=== PATIENT | female | born 1930 | race Caucasian/White ===

== ENCOUNTER 2019-09-14 15:35 | Inpatient (IN) | payer MEDICARE, BC ==
[~2019-09-14] VITALS: Ht 160 cm; Wt 62.1 kg
--- NOTE | 2019-09-14 16:02 | NUR ---
Admission Note with Justification for Admission to [facility] Patient admitted to [facility] for protective oversight for emergency stabilization of acute psychiatric crisis. Pt admitted from: [facility] Mode of arrival: Secure Transport Accompanied By: Secure Transport Precipitating behaviors that initiated intake and admission: Patient admitted from [facility] for reportedly being belligerent, verbally abusive, increased confusion, attempted to throw walker and fell and broke hip. Scratching and biting staff, threatening to kill herself while at rehab at [facility]. While at [facility] visual hallucinations, confusion and sleep disturbances. Description of failure of out patient attempts at stabilization in previous setting list behavior and medication trials: Patient has not responded to medication changes Behaviors and assessment findings upon admission: Patient was extremely drowsy, not responding to questions. Plan: Admit for protective oversight for adjustment and stabilization of medications, behaviors and mood. Intense treatment regimen including groups, medication adjustments, therapy, consistent regimen for ADL's, self care, and sleep hygiene. Daily monitoring by Inpatient staff, Psychiatry, and Medical Physician.
[2019-09-14] MEDS ORDERED: ACETAMINOPHEN 325 MG TABLET PO PRN ×2 (16:15→17:15)
[2019-09-14] MEDS ORDERED: MAGNESIUM HYDROXIDE 2,400 MG/30 ML ORAL.SUSP. PO PRN (16:15)
[2019-09-14] MEDS ORDERED: MAG HYDROX/AL HYDROX/SIMETH 30 ML ORAL.SUSP PO PRN (16:15)
[2019-09-14] MEDS ORDERED: METHYL SALICYLATE/MENTHOL TOPICAL OINTMENT 57GM TUBE. TP PRN (16:15)
[2019-09-14 16:44] VITALS: BP 118/44
[2019-09-14] MEDS ORDERED: ALEN35TA11 PO (16:45)
[2019-09-14] MEDS ORDERED: CALC-111 PO (16:45)
[2019-09-14] MEDS ORDERED: MIRT7.5T8 PO (16:45)
[2019-09-14] MEDS ORDERED: ROSU10TA26 PO (16:45)
[2019-09-14] MEDS ORDERED: OXYC15TA22 PO (16:45)
[2019-09-14] MEDS ORDERED: POLY15DR20 EACHEYE (16:45)
[2019-09-14] MEDS ORDERED: QUET25TA5 PO (16:45)
[2019-09-14] MEDS ORDERED: ISOS60TA2 PO (16:45)
[2019-09-14] MEDS ORDERED: FERR240T2 PO (16:45)
[2019-09-14] MEDS ORDERED: LENA5CAP PO (16:45)
[2019-09-14] MEDS ORDERED: INSU100I13 SQ (16:45)
[2019-09-14] MEDS ORDERED: METO50TA29 PO (16:45)
[2019-09-14] MEDS ORDERED: DOCU-109 PO (16:45)
[2019-09-14] MEDS ORDERED: ACET325T9 PO (16:45)
[2019-09-14] MEDS ORDERED: CHOL200027 PO (16:45)
[2019-09-14] MEDS ORDERED: INSU100C4 SQ (16:45)
[2019-09-14] MEDS ORDERED: ASPI325T8 PO (16:45)
[2019-09-14] MEDS ORDERED: LORA10TA55 PO (16:45)
--- NOTE | 2019-09-14 16:56 | NUR ---
Patient admitted from [facility] post-op day 3 Right hip ORIF. Patient's discharge instructions include; Change aquacell in 7 days to new aquacell and leave until 14 days post-op, Avalon out 14 days post-op and then place steri-strips. Leave incision open to air, keep clean and dry, ALEXANDER hose for a total of 2 weeks post-op, Aspirin 325mg BID for 6 weeks for DVT prophylaxis, formal therapy, Weight bearing as tolerated, Ambulate with walker. Therapy briefed on patient's situation prior to arrival, will inform them of full instructions when they do their assessment. Patient extremely drowsy and placed in wheelchair on admission for safety. Will continue to monitor and report to oncoming shift.
[2019-09-14] MEDS: CALCIUM CARB/VIT D3 500/200 TABLET PO SCH (17:00)
--- NOTE | 2019-09-14 17:14 | EKG ---
[address] [address] Test Date: 2019-09-14 Test Time: 18:06:21 Pat Name: NELDA PABON Department: Room: [address] [place] [address] Gender: F Industrial Engineering Director: EDMUNDO : 1930 Requested By: MOLINA SINGH Order Number: [id number] Reading MD: Measurements Intervals [place] Rate: 60 P: LA: QRS: 30 QRSD: 80 T: 51 QT: 430 QTc: 430 Interpretive Statements IRREGULAR RHYTHM, NO P-WAVE FOUND OTHERWISE NORMAL ECG RI6.02 No previous ECG available for comparison
[2019-09-14] MEDS ORDERED: POLYVINYL ALCOHOL 1.4% OPHTH SOLUTION 15ML BOTTLE. OU PRN (17:15)
[2019-09-14] MEDS ORDERED: DEXTROSE 50% 25 GM / 50ML DISP.SYRIN. IV PRN (17:45)
[2019-09-14] MEDS: DOCUSATE SODIUM 100 MG CAPSULE PO SCH ×2 (20:21→21:00)
[2019-09-14] MEDS: CHOLECALCIFEROL (VITAMIN D3) 1,000 UNIT TABLET PO SCH ×2 (20:21→21:00)
[2019-09-14] MEDS: FERROUS SULFATE 325 MG TABLET. PO SCH ×2 (20:21→21:00)
[2019-09-14] MEDS: ASPIRIN 325 MG TABLET PO SCH ×2 (20:21→21:00)
[2019-09-14] MEDS: MIRTAZAPINE 7.5 MG TABLET. PO SCH ×2 (20:21→21:00)
[2019-09-14] MEDS: ATORVASTATIN CALCIUM 20 MG TABLET PO SCH ×2 (20:22→21:00)
[2019-09-14] MEDS: QUEtiapine 25 MG TABLET. PO SCH ×2 (20:22→21:00)
[2019-09-14] MEDS ORDERED: INSULIN GLARGINE SYRINGE. SQ SCH (21:00)
[2019-09-15] MEDS: oxyCODONE IR 5 MG TABLET PO PRN ×3 (05:21→20:01)
[2019-09-15 05:51] VITALS: BP 146/70
[2019-09-15 07:16] LABS: BASO # 0.1 x10^3/uL (0.0-0.2); BASO % 2 % (0-3); EOS # 0.2 x10^3/uL (0.0-0.7); EOS % 7 % (0-3); HEMATOCRIT 24.6 % (36.0-47.0); HEMOGLOBIN 8.4 g/dL (12.0-15.5); LYMPH # 0.6 x10^3/uL (1.0-4.8); LYMPH % 28 % (24-48); MEAN CORPUSCULAR HEMOGLOBIN 34 pg (25-35); MEAN CORPUSCULAR HGB CONC 34 g/dL (31-37); MEAN CORPUSCULAR VOLUME 98 fL (79-100); MONO # 0.2 x10^3/uL (0.0-1.1); MONO % 10 % (0-9); NEUT # 1.2 x10^3uL (1.8-7.7); NEUT % 53 % (31-73); PLATELET COUNT 100 x10^3/uL (140-400); RED CELL DISTRIBUTION WIDTH 16.6 % (11.5-14.5); WHITE BLOOD COUNT 2.2 x10^3/uL (4.0-11.0)
[2019-09-15 07:25] LABS: ALBUMIN/GLOBULIN RATIO 0.6 (1.0-1.7); CALCIUM 7.9 mg/dL (8.5-10.1); CREATININE 1.3 mg/dL (0.6-1.0); GFR 38.8; MAGNESIUM 1.4 mg/dL (1.8-2.4); POTASSIUM 3.6 mmol/L (3.5-5.1); TOTAL BILIRUBIN 0.6 mg/dL (0.2-1.0); TOTAL PROTEIN 5.6 g/dL (6.4-8.2)
[2019-09-15] MEDS ORDERED: NON FORMULARY ITEM (Insulin Aspart (Novolog) 0 UNIT) SQ SCH (08:00)
[2019-09-15] MEDS: INSULIN LISPRO 300 UNITS/3 ML VIAL. SQ SCH ×3 (08:35→17:17)
[2019-09-15] MEDS: ASPIRIN 325 MG TABLET PO SCH ×2 (08:37→20:01)
[2019-09-15] MEDS: ISOSORBIDE MONONITRATE ER 30 MG TAB.ER.24H PO SCH (08:37)
[2019-09-15] MEDS: CALCIUM CARB/VIT D3 500/200 TABLET PO SCH ×2 (08:37→17:17)
[2019-09-15] MEDS: METOPROLOL SUCC 24HR ER 50 MG TAB.ER.24H. PO SCH (08:38)
[2019-09-15] MEDS: QUEtiapine 25 MG TABLET. PO SCH ×2 (08:38→20:00)
[2019-09-15] MEDS ORDERED: ALENDRONATE SODIUM 35 MG TABLET PO SCH (09:00)
[2019-09-15] MEDS ORDERED: CETIRIZINE HCL 10 MG TABLET PO PRN (09:00)
[2019-09-15 14:28] LABS: THYROID STIM HORMONE (TSH) 3.719 uIU/mL (0.358-3.740)
[2019-09-15] MEDS ORDERED: DEXTROSE 50% 25 GM / 50ML DISP.SYRIN. IV PRN (14:45)
[2019-09-15 15:54] VITALS: BP 109/64
--- NOTE | 2019-09-15 17:05 | NUR ---
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 REASON FOR ADMISSION IN PATIENT/FAMILY'S OWN WORDS: Family thinks this could be due to her procedure; her confusion has increased and she is aggressive which is not her nature. PATIENT/FAMILY EXPECTATIONS FOR ADMISSION: Medication and behavioral management. LIVING SITUATION: Patient lives with: Detention Other living arrangements: moved to the rehab department Contact Name: [facility] Contact Address: [address]; [place] [address] Contact Phone #: Contact Fax #: FAMILY RELATIONS: Marital Status: # of Marriages: 1 # of Children: 2 [facility] Family Support: Cooperative Involved in DC Planning Additional Comments r/t Family: Pt was for 49 years to her Lavell. In 2002, Lavell from a potential brain bleed; but unknown if that is the exact cause. Pt had 2 boys: Lavell and Jagjit. Pt does have a significant other that she's dated for the last couple years. SIGNIFICANT PSYCHIATRIC/MEDICAL HISTORY: Psychiatric/Treatment History: This is pt first psych stay on [facility] Pertinent Family History: No psych hx is noted. Mostly medical concerns of diabetes and heart trouble. HISTORICAL DATA: Childhood Environment: Stressful Childhood Environment Additional Comments: Pt is 1 of 11 children. Pt mother was mainly a single parent raising all 11 children; meanwhile, pt father worked for the railroad. He got hurt and lost both of his legs; later dying from infections. Pt sons report that pt does not talk about her childhood much as they grew up poor. Pt is the last living person in her family. 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 Past/Present Interests/Hobbies: Pt loves to dance. She is very social. Financial support/resources: Usp/Pension Social Security Monthly income: Person handling finances: Pt son, Lavell, is the financial DPOA Do you have a history of legal problems: N Cultural considerations: SOCIAL RELATIONSHIPS-CURRENT/PAST: Psychiatrist: PCP: Bruce Berry Counselor/Therapist: [facility]: Support Group: Behavioral Geneticist/Patent Lawyer: Other relationships: Oncologist -- Dr. Vieira STRENGTHS & WEAKNESSES: Patient's strengths: Good family support Approachable Other patient strengths: Patient's weaknesses: Impulsive Physically Aggressive Verbally Aggressive Other patient weaknesses: PRELIMINARY PLAN OF TREATMENT: Preliminary plan: Promote Coping Skill Medication Stabilization Dec. Outbursts Other preliminary treatment comments: DISCHARGE PLANNING: Discharge planning/disposition: Placement Needed Additional discharge needs identified: Pt sons are attempting to look at facilities in the [facility] area (closer to family). ADDITIONAL INFORMATION: Other Pertinent Data: SW completed pt PSA with pt sons, Lavell and Jagjit. Pt sons report that pt is not typically aggressive in nature and this has been a change for pt. SW questioned the diagnosis of a Mild Cognitive Impairment. Pt sons report that they believe pt has Dementia; however, it was hard to determine as pt is [place], has macular degeneration. Pt son reports that he has to repeat himself because she can't hear him. Pt son will plan to participate in tx team and mentioned that he brought in medications; however, the nurses told him to take them home. SW took the medications and will discuss this further with nursing as to why we cannot use them for pt while she is here. Pt son also mentioned that he has her RW in his car and can bring that up tomorrow if it is needed. SW will follow up with PT/OT to see if pt will need the walker.
[2019-09-15] MEDS: MAGNESIUM OXIDE 400 MG TABLET PO SCH ×2 (17:17→20:01)
--- NOTE | 2019-09-15 17:26 | NUR ---
Pt cooperative with all meds and assessments this shift. Pt generally pleasant, but does state she feels someone is after her at times. Pt ambulated in mendieta with PT. Medicated PRN for pain x1 in R hip/heel with adequate relief noted. Per MD, if blood glucose is >300, give 9 units of SSI this shift. Reassess tomorrow. Further adjustments to insulin may need to be made to maintain blood glucose in acceptable range. No BM noted this shift. No falls or injuries reported.
[2019-09-15] MEDS: ATORVASTATIN CALCIUM 20 MG TABLET PO SCH (20:00)
[2019-09-15] MEDS: MIRTAZAPINE 7.5 MG TABLET. PO SCH (20:01)
[2019-09-15] MEDS: FERROUS SULFATE 325 MG TABLET. PO SCH (20:01)
[2019-09-15] MEDS: CHOLECALCIFEROL (VITAMIN D3) 1,000 UNIT TABLET PO SCH (20:01)
[2019-09-15] MEDS: DOCUSATE SODIUM 100 MG CAPSULE PO SCH (20:02)
[2019-09-15] MEDS: INSULIN GLARGINE SYRINGE. SQ SCH (20:47)
[2019-09-15 21:06] LABS: THYROXINE 6.9 ug/dL (4.5-12.0)
--- NOTE | 2019-09-15 21:23 | NUR ---
Nursing note: Assumed care of pt in the day room. She was withdrawn but pleasant and compliant with meds and assessment. She is alert to self only. Pt pain 5/10, given prn Roxicodone as ordered. No behaviors
--- NOTE | 2019-09-15 22:43 | CONS ---
DATE OF CONSULTATION: 09/15/2019 REASON FOR CONSULTATION: Medical management. The patient is an 88-year-old female patient who was [facility] on account of increasing depression with suicidal ideation and thoughts with the plan, was thinking of giving herself. Dictation Ends Here JOSE YOUNG MD DR: KINSEY/austen JOB#: [id number] / [id number]
--- NOTE | 2019-09-15 23:51 | CONS ---
DATE OF CONSULTATION: 09/15/2019 REASON FOR CONSULTATION: Medical management. HISTORY OF PRESENT ILLNESS: The patient is an 88-year-old female patient, a resident at [facility], who was admitted to this unit on account of being belligerent, verbally abusive, increased confusion, attempted to throw walker and fell and broke her hip, scratching and biting staff, threatening to kill herself while at rehab at [facility]. While at [facility], she was noted to have visual hallucination, confusion, sleep disturbances, all this in a background of dementia with behavioral disturbances. The patient is very confused and really was not giving any useful information. PAST MEDICAL HISTORY: Significant for hypertension, coronary artery disease, hyperlipidemia, peripheral vascular disease, macular degeneration, chronic kidney disease. 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 She is legally blind. She has also pernicious anemia. She is hard of hearing and has bilateral hearing aids. PAST SURGICAL HISTORY: Significant for left hip fracture, status post open reduction and internal fixation. ALLERGIES: She is allergic to TYLOXAPOL AND AMBIEN. MEDICATIONS: She is currently on loratadine 10 mg once a day, Revlimid 5 mg every other day, ferrous gluconate 325 mg at bedtime, Crestor 10 mg at bedtime, isosorbide mononitrate 60 mg once a day, metoprolol succinate 50 mg daily. She is on aspirin 325 mg twice a day, oxycodone 5 mg every 4 hours, Tylenol 650 mg every 6 hours, mirtazapine 7.5 mg at bedtime. She is on Seroquel 12.5 mg twice a day and calcium carbonate with vitamin D one tablet twice a day, polyvinyl alcohol 1 drop to both eyes as needed, Colace 100 mg at bedtime. She is on NovoLog insulin 48 units subcutaneous 3 times a day with meals. She is on Lantus SoloSTAR 8 units at bedtime, cholecalciferol vitamin D 2000 international units once at bedtime. She is on alendronate 35 mg every 2 weeks. FAMILY HISTORY: Unobtainable. SOCIAL HISTORY: Also unobtainable. The patient is extremely confused. REVIEW OF SYSTEMS: Unobtainable. PHYSICAL EXAMINATION: GENERAL: When I examined her, she was pale, but no jaundice, cyanosis or thyromegaly. No jugular venous distention. No limb edema. VITAL SIGNS: Her heart rate was 65, blood pressure was 146/70, temperature was 98.1, respiratory rate was 18 and oxygen saturation was 95%. HEAD, EYES, EARS, NOSE AND THROAT: Showed normocephalic, atraumatic. NECK: Supple. HEART: Normal first and second heart sounds. No gallop, rub or murmur. CHEST: Clear to auscultation. No crepitation or rhonchi. ABDOMEN: Distended, soft, nontender. NEUROLOGIC: She is awake, alert, but very confused; however, all her cranial nerves are intact. EXTREMITIES: Moves upper extremities without difficulty. She has right hip fracture, status post open reduction and internal fixation. She also has right calcaneal fracture. She is currently in a walking boot. LABORATORY WORK: Showed serum sodium 139, potassium 3.6, chloride 106, bicarbonate 25, anion gap of 8, BUN 27, creatinine was 1.3 mg/dL, estimated GFR was 39 mL. Glucose was 235, calcium was 7.9, magnesium was 1.4. Total bilirubin, AST, ALT, alkaline phosphatase were normal. Total protein was 5.6, albumin was 2. The patient has pancytopenia. Her white cell count was only 2200, hemoglobin 8.4, hematocrit 24, MCV 98 and platelet count of 100,000 with normal manual differential. IMPRESSION: In summary, this is an 88-year-old female patient, was referred from [facility] on account of being belligerent, verbally abusive, increased confusion, attempted to throw walker and fell and broke her hip. She was scratching and biting staff, threatening to kill herself while at rehab at [facility]. While there, she also had visual hallucination, confusion and sleep disturbances, all this in a background of dementia with behavioral disturbances. Medically, she has pancytopenia due to myelodysplastic syndrome. She is known to have senile macular degeneration, chronic kidney disease, hyperlipidemia, coronary artery disease, hypertension, peripheral vascular disease, type 2 diabetes mellitus, poorly controlled. She is also hard of hearing and she is legally blind. She has also pernicious anemia. Her outstanding medical problem is that she has hypomagnesemia, for which was started on magnesium oxide 400 mg 2 times a day. We also adjusted her long-acting and short-acting insulin. Her blood sugar is definitely suboptimally controlled. We will follow all her labs and make any necessary adjustment. Thank you, Dr. Conklin, for allowing me to participate in the care of this patient. JOSE YOUNG MD DR: KINSEY/austen JOB#: [id number] / [id number]
--- NOTE | 2019-09-16 00:23 | PSYEV ---
DATE OF SERVICE: 09/14/2019 REASON FOR ADMISSION: This 88-year-old female was admitted from [facility] for reportedly being belligerent, verbally abusive, increased confusion and attempted to throw a walker and fell and broke her hip. The patient also was scratching and biting staff, threatening to kill herself while at the rehab. The patient is also experiencing visual hallucinations, confusion, and sleep disturbance. HISTORY OF PRESENT ILLNESS: The patient is unable to give much information. The patient has significant hearing loss. The patient is also very delusional. The patient was afraid that people are going to kill her. The patient also made statements that people are following her wherever she goes. The patient did not know that she was in the hospital. She was confused and disoriented to surroundings. The patient since being at the rehab facility, she become increasingly confused, severe agitation, paranoia, physically abusive towards staff. The patient has a diagnosis of severe dementia and she was hospitalized for right intertrochanteric fracture on 09/11/2019. The patient also had a hematoma of the head. The patient was originally seen at the ER on 09/10/2019 for the right hip fracture after falling. Apparently, she had a comminuted fracture of the right calcaneus. She was treated with CAM walker and discharged to custodial facility on 09/08/2019. She presented again to the ER with confusion and hallucinations. On 09/10/2019, she become combative with the staff. Apparently picked up a walker and then try to throw it at the staff. That is the time she fell and broke her right hip. X-ray was done. The patient had a displaced right intertrochanteric femur fracture, CT of the pelvis confirmed displacement. The patient has been complaining of severe right hip and groin pain. PAST MEDICAL HISTORY: Status post right hip fracture, pernicious anemia, history of cardiac catheterization, diabetic retinopathy, cataract removal, bone implants after ruptured 6th and 7th cervical disk, hypertension, dyslipidemia, chronic kidney disease, diabetes mellitus type 2, myelodysplastic syndrome, and osteoporosis. PAST PSYCHIATRIC HISTORY: The patient unable to give much information. Apparently, she has a history of depression. The patient apparently has been treated with mirtazapine and olanzapine recently. CURRENT MEDICATIONS: Include Lantus insulin 12 units at night subcutaneously, Humalog 0-9 units t.i.d. with meals. The patient is also on Revlimid 5 mg daily. The patient is also on Zyrtec 10 mg p.r.n. daily, Imdur 60 mg daily, metoprolol 50 mg daily, Fosamax 35 mg q. 2 weeks, Lipitor 40 mg at night, ferrous sulfate 325 mg at night, vitamin D 2000 units at night, Seroquel 12.5 mg b.i.d., mirtazapine 7.5 mg at night, aspirin 325 mg b.i.d., oxycodone 5 mg q. 4 hours p.r.n. The patient's lab reviewed. The patient's white cell count was 2.2, RBC 2.5, hemoglobin 8.4, platelet count 100. The patient's BUN was 27, creatinine 1.3, glucose fluctuated from 232-387. Fingerstick blood glucose level was 235, calcium 7.9, magnesium 1.4. PSYCHOSOCIAL HISTORY: The patient is unable to give much information at this time except stated she had a 4-year in college. 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 The patient denies of any history of smoking or alcohol use. The patient also lately having difficulty with sleep. The patient also constantly agitated, paranoid, fearful, also delusional that people are coming after her and also having visual hallucinations, increased confusion and sleep disturbances. The patient apparently was living on her own until recently and after the fall, she has been at the long-term. The patient is . 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 The patient apparently having multiple physical complaints. The patient was recently diagnosed with delirium and including most likely postop confusional state on top of the dementia. The patient has a DPOA. Apparently, her son is the DPOA. MENTAL STATUS EXAMINATION: The patient appeared to be of stated age, currently on wheelchair. The patient has marked psychomotor retardation, also blunting of affect. The patient is able to make eye contact. Apparently, she is legally blind. The patient also has significant hearing loss. The patient was indifferent to her surroundings. Her speech was monotone, decreased rate and rhythm, mostly monosyllabic. Her affect and mood showed she is currently withdrawn, delusional, fearful and she is afraid somebody is coming after her. The patient feels her life is in danger. The patient has recent history of visual hallucinations, but it is difficult to identify her symptoms because of the patient's inability to report her current symptoms. The patient appears depressed, slow mentation. She is disoriented to time, place and person. Her memory is not testable. The patient when asked about the current year, she stated 1930. Also, she stated today is the [employer]. The patient was able to smile at times. The patient did not show any major problems with thinking, except poverty of ideation. The patient was not able to hold any conversation. The patient denied of any suicidal thoughts. The patient does not recall most of the behaviors that has been reported. The patient's judgment is impaired. Insight limited. STRENGTH: Supportive family. WEAKNESSES: The patient has multiple physical complaints, recent fracture, right hip and also history of dementia. She is a high risk for falls. The patient also has abnormal lab values. DIAGNOSTIC IMPRESSION: AXIS I: 1. 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 2. Major depression, single episode. AXIS II: None. AXIS III: Coronary artery disease, peripheral vascular disease, chronic kidney disease, type 2 diabetes mellitus complicated with retinopathy, myelodysplastic syndrome, osteoporosis, hypertension. INITIAL TREATMENT PLAN: The patient will be under observation. The patient will be a fall risk precautions. The patient will continue on her current medications. The patient will be encouraged to attend some of the activities including individual therapy, group therapy, activity therapy. LENGTH OF STAY: 7-10 days. DISCHARGE CRITERIA: The patient is able to show improvement with regard to her inability to manage not falling and also less confused and less delusional prior to returning to the long-term. MOLINA SINGH MD DR: Tracy JOB#: [id number] / [id number]
[2019-09-16 01:07] LABS: HEMOGLOBIN A1C 7.6 % (4.8-5.6)
[2019-09-16 05:56] VITALS: BP 144/70
[2019-09-16] MEDS: ASPIRIN 325 MG TABLET PO SCH ×2 (08:20→19:52)
[2019-09-16] MEDS: MAGNESIUM OXIDE 400 MG TABLET PO SCH ×3 (08:20→19:53)
[2019-09-16] MEDS: CALCIUM CARB/VIT D3 500/200 TABLET PO SCH ×2 (08:20→18:04)
[2019-09-16] MEDS: QUEtiapine 25 MG TABLET. PO SCH ×2 (08:21→19:53)
[2019-09-16] MEDS: ISOSORBIDE MONONITRATE ER 30 MG TAB.ER.24H PO SCH (08:21)
[2019-09-16] MEDS: METOPROLOL SUCC 24HR ER 50 MG TAB.ER.24H. PO SCH (08:22)
[2019-09-16] MEDS: LENALIDOMIDE 5 MG PO SCH (08:23)
[2019-09-16] MEDS: INSULIN LISPRO 300 UNITS/3 ML VIAL. SQ SCH ×3 (08:23→17:00)
--- NOTE | 2019-09-16 14:42 | NUR ---
Activity Therapy Assessment Completed based on observation and notes as Pt. is unable to answer assessment questions at this time. Pt. uses a wheelchair to ambulate due to a recent hip surgery last month. Pt. is quiet, withdrawn, often sleeping, but generally calm and compliant with meds and cares. Pt. orientation seems limited to herself as she was observed responding to her name but had difficulty recognizing her sons when they came to visit. Pt. is polite in her interactions with staff and is hard of hearing. Pt. is from [facility] in [place], [place]. She is with two sons, Lavell and Jagjit, who are her DPOAs. 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 According to her sons, Pt. loves to dance and socialize with others. Pt. can be restless at times and attempt to stand out of her wheelchair but seems to respond well to repetition and gentle redirection. Pt. is often around group activities but tends to sleep through them. Pt. voice is soft and quiet but she seems to be able to speak in full sentences and responds to her environment. Initial goal aimed to increase socialization and engagement: Pt. will participate in three Activity Therapy groups or individual sessions per week.
[2019-09-16 15:27] VITALS: BP 119/67
--- NOTE | 2019-09-16 18:30 | NUR ---
Patient has been disorganized, calm, interactive, and pleasantly confused throughout this shift, occasionally wandering in the halls. She has been compliant with all medications. She was compliant and cooperative with PT and OT, she did have some complaints of pain after walking with PT. Will continue to monitor and report to oncoming shift.
[2019-09-16] MEDS: CHOLECALCIFEROL (VITAMIN D3) 1,000 UNIT TABLET PO SCH (19:52)
[2019-09-16] MEDS: DOCUSATE SODIUM 100 MG CAPSULE PO SCH (19:52)
[2019-09-16] MEDS: MIRTAZAPINE 7.5 MG TABLET. PO SCH (19:52)
[2019-09-16] MEDS: ATORVASTATIN CALCIUM 20 MG TABLET PO SCH (19:53)
[2019-09-16] MEDS: FERROUS SULFATE 325 MG TABLET. PO SCH (19:53)
[2019-09-16] MEDS: INSULIN GLARGINE SYRINGE. SQ SCH (21:02)
--- NOTE | 2019-09-16 22:07 | NUR ---
Nursing note: Assumed care of pt in the day room. She had just come from the shower and was pleasantly interactive. Pt is compliant with meds and assessment, no c/o pain at this time.
--- NOTE | 2019-09-17 00:29 | PN ---
DATE: 09/16/2019 SUBJECTIVE: The patient was seen today, met with the staff, chart reviewed. The patient is currently on wheelchair. The patient's behavior has improved. No falls. The patient is confused, withdrawn, constriction of affect. The patient is able to hold a conversation. The patient has also significant hearing loss. OBJECTIVE: VITAL SIGNS: Temperature 97.8, blood pressure 144/70, pulse 57, respiration 18, O2 sat 97%. GENERAL: Slept about 7 hours last night. The patient's appetite is fair. CURRENT MEDICATIONS: Include Seroquel 12.5 mg b.i.d., mirtazapine 7.5 mg at night and the patient is not having any side effects. LABORATORY DATA: The patient's lab reviewed. The patient's hemoglobin 8.4, decreased WBC and RBC count, also platelet count 100. The patient's hemoglobin A1c was 7.6, glucose level fluctuated. The patient's BUN was 23, creatinine 1.3. ASSESSMENT: 1. 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 2. Major depression, single episode. PLAN: Continue with the current treatment plan. LENGTH OF STAY: 7-10 days. MOLINA SINGH MD DR: PEDRO/austen JOB#: [id number] / [id number]
[2019-09-17 06:11] VITALS: BP 155/100
--- NOTE | 2019-09-17 07:41 | NUR ---
[facility] reports patient's [id number]. called, new orders received. Will provide medications and recheck FSBS at 10:00 per MD order. Addendum: 09/17/19 at 1200 by MANOJ CHAMPAGNE II, RN Patient's repeat FSBS was 309, made aware, new orders received and entered.
[2019-09-17] MEDS ORDERED: INSULIN LISPRO 300 UNITS/3 ML VIAL. SQ ONE ×2 (07:45→11:30)
[2019-09-17] MEDS: MAGNESIUM OXIDE 400 MG TABLET PO SCH ×3 (08:00→20:28)
[2019-09-17] MEDS: INSULIN LISPRO 300 UNITS/3 ML VIAL. SQ SCH ×3 (08:00→17:00)
[2019-09-17] MEDS: ASPIRIN 325 MG TABLET PO SCH ×2 (08:00→20:28)
[2019-09-17] MEDS: ISOSORBIDE MONONITRATE ER 30 MG TAB.ER.24H PO SCH (08:00)
[2019-09-17] MEDS: CALCIUM CARB/VIT D3 500/200 TABLET PO SCH ×2 (08:00→17:38)
[2019-09-17] MEDS: METOPROLOL SUCC 24HR ER 50 MG TAB.ER.24H. PO SCH (08:01)
[2019-09-17] MEDS: QUEtiapine 25 MG TABLET. PO SCH ×2 (08:02→20:29)
[2019-09-17] MEDS: LENALIDOMIDE 5 MG PO SCH ×2 (08:02→08:32)
[2019-09-17] MEDS: oxyCODONE IR 5 MG TABLET PO PRN (12:22)
[2019-09-17 15:36] VITALS: BP 128/64
--- NOTE | 2019-09-17 18:30 | NUR ---
Patient has been calm, compliant, and pleasantly confused during most of this shift. At about 15:30, she became agitated with another patient and was combative with aides when they attempted to redirect her. PAtient was removed from the other patient and placed at the table in the day room; she was very restless. Assisted patient up with a walker and walked with patient from the day room, down the east hallway, and then she sat down in front of the [facility] nurses' station. She was much less restless at this time and visited with her sons when they came at 16:00. She was calm and compliant through dinner, then was restless and trying to stand without assistance after she was done eating. Patient assisted to stand with walker and escorted to her room where she laid down. Will continue to monitor and report to oncoming staff.
[2019-09-17] MEDS: MIRTAZAPINE 7.5 MG TABLET. PO SCH (20:28)
[2019-09-17] MEDS: ATORVASTATIN CALCIUM 20 MG TABLET PO SCH (20:28)
[2019-09-17] MEDS: FERROUS SULFATE 325 MG TABLET. PO SCH (20:28)
[2019-09-17] MEDS: DOCUSATE SODIUM 100 MG CAPSULE PO SCH (20:28)
[2019-09-17] MEDS: CHOLECALCIFEROL (VITAMIN D3) 1,000 UNIT TABLET PO SCH (20:29)
[2019-09-17] MEDS: INSULIN GLARGINE SYRINGE. SQ SCH (20:31)
--- NOTE | 2019-09-17 23:51 | NUR ---
Pt has been in her bed all evening. Pt pleasant and interactive when approached. Compliant with whole medications. A/O to name, . Denies pain.
--- NOTE | 2019-09-18 00:54 | PN ---
DATE: 09/17/2019 SUBJECTIVE: The patient was seen today, met with the staff, chart reviewed. The patient's behavior remains the same. She is on wheelchair, withdrawn, decreased psychomotor activity, able to make eye contact. The patient is still confused and also significant hearing loss. OBSERVATION: VITAL SIGNS: Temperature 97.4, blood pressure 155/105, pulse 74, respirations 20, O2 sat 94%. Slept about 8 hours last night. The patient's appetite decreased. LABORATORY DATA: The patient's lab reviewed. MEDICATIONS: The patient's current medications include Seroquel 12.5 mg b.i.d., mirtazapine 7.5 mg at night. The patient is not having any side effects from medications. Staff reports that the patient is very confused and also she is not able to stay in bed at times. She is a fall risk. ASSESSMENT: 1. 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 2. Major depression, single episode. PLAN: To continue with the treatment. LENGTH OF STAY: 7-10 days. MOLINA SINGH MD DR: PEDRO/austen JOB#: [id number] / [id number]
--- NOTE | 2019-09-18 05:20 | NUR ---
Pt irritable and agitated this morning. Pt called staff names "mean bitch" and twisted GRANTS MANAGER's fingers.
[2019-09-18 05:49] VITALS: BP 152/60
[2019-09-18] MEDS: oxyCODONE IR 5 MG TABLET PO PRN (06:08)
[2019-09-18] MEDS: INSULIN LISPRO 300 UNITS/3 ML VIAL. SQ SCH ×3 (08:00→17:35)
[2019-09-18] MEDS: CALCIUM CARB/VIT D3 500/200 TABLET PO SCH ×2 (08:13→17:37)
[2019-09-18] MEDS: QUEtiapine 25 MG TABLET. PO SCH ×2 (08:13→20:34)
[2019-09-18] MEDS: MAGNESIUM OXIDE 400 MG TABLET PO SCH ×3 (08:13→20:33)
[2019-09-18] MEDS: ISOSORBIDE MONONITRATE ER 30 MG TAB.ER.24H PO SCH (08:14)
[2019-09-18] MEDS: METOPROLOL SUCC 24HR ER 50 MG TAB.ER.24H. PO SCH (08:14)
[2019-09-18] MEDS: ASPIRIN 325 MG TABLET PO SCH ×2 (08:15→20:33)
[2019-09-18 16:08] VITALS: BP 119/64
--- NOTE | 2019-09-18 16:19 | NUR ---
Compliant with medications. C/O pain in R hip and given PRN Roxicodone and analgesic balm for relief. Ambulated with walker one time down hallway with SBA, otherwise propelling self with w/c. Focused on family visiting to take her home, concerned about driving in the snow. Unable to redirect. No physical agitation today, but became upset when told she could not leave. Dressing changed to two bottom steri stripped areas, covered with foam aquacel. No drainage or redness.
[2019-09-18] MEDS: FERROUS SULFATE 325 MG TABLET. PO SCH (20:34)
[2019-09-18] MEDS: CHOLECALCIFEROL (VITAMIN D3) 1,000 UNIT TABLET PO SCH (20:34)
[2019-09-18] MEDS: MIRTAZAPINE 7.5 MG TABLET. PO SCH (20:34)
[2019-09-18] MEDS: DOCUSATE SODIUM 100 MG CAPSULE PO SCH (20:34)
[2019-09-18] MEDS: ATORVASTATIN CALCIUM 20 MG TABLET PO SCH (20:34)
[2019-09-18] MEDS: INSULIN GLARGINE SYRINGE. SQ SCH (20:37)
--- NOTE | 2019-09-18 22:47 | NUR ---
Pt has been calm and drowsy this evening. Compliant with whole medications and shower. A/Ox2. Denies pain. No agitation this evening.
[2019-09-19 05:28] VITALS: BP 154/69
[2019-09-19] MEDS: ASPIRIN 325 MG TABLET PO SCH ×2 (08:46→21:02)
[2019-09-19] MEDS: MAGNESIUM OXIDE 400 MG TABLET PO SCH ×3 (08:46→21:02)
[2019-09-19] MEDS: CALCIUM CARB/VIT D3 500/200 TABLET PO SCH ×2 (08:46→17:37)
[2019-09-19] MEDS: ISOSORBIDE MONONITRATE ER 30 MG TAB.ER.24H PO SCH (08:46)
[2019-09-19] MEDS: QUEtiapine 25 MG TABLET. PO SCH ×2 (08:46→21:02)
[2019-09-19] MEDS: LENALIDOMIDE 5 MG PO SCH (08:47)
[2019-09-19] MEDS: METOPROLOL SUCC 24HR ER 50 MG TAB.ER.24H. PO SCH (08:47)
[2019-09-19] MEDS: INSULIN LISPRO 300 UNITS/3 ML VIAL. SQ SCH ×3 (08:54→17:39)
--- NOTE | 2019-09-19 09:28 | NUR ---
Patient has been restless, sarcastic, and delusional this morning. She has had increased complaints of pain in right hip, prn medication provided per eMAR. Patient assisted to her room and into bed per her wishes. Will continue to monitor. Contacted patient's ortho group, left message with nurse requesting instructions r/t patient's needs for orthopedic interventions. Addendum: 09/19/19 at 0956 by MANOJ CHAMPAGNE II, RN TREE Hilton for Dr. Arroyo, ortho, called with instructions for CAM boot; patient is to wear the CAM boot except when she is in bed or showering until she is evaluated by orthopedics.
--- NOTE | 2019-09-19 10:00 | PN ---
DATE: 09/18/2019 SUBJECTIVE: The patient was seen today, met with the staff, chart reviewed. Staff reports the patient has been irritable, bernardo, gets agitated, also paranoid. The patient has difficulty following directions. The patient is withdrawn most of the time on wheelchair. The patient is also legally blind, but she is able to see few things around her, able to recognize people and also she knew that it was snowing outside. The patient is also confused, significant cognitive deficits, stated that she is waiting for plane to take her to [place]. The patient was upset because they are not letting her leave the building. The patient has also exit-seeking behaviors. OBSERVATION: VITAL SIGNS: Temperature 97.5, blood pressure 152/60, pulse 69, respirations 18, O2 sat 99%. Slept about 8 hours last night. LABORATORY DATA: The patient's lab reviewed. MEDICATIONS: The patient's current medications include Seroquel 12.5 mg b.i.d., mirtazapine 7.5 mg at night. The patient is not having any side effects to medications. The patient is still a fall risk. Staff reports sometimes she gets into an argument with the staff and tend to become combative and agitated easily. ASSESSMENT: 1. 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 2. Major depression, single episode. PLAN: To continue with the treatment. LENGTH OF STAY: 7-10 days. MOLINA SINGH MD DR: PEDRO/austen JOB#: [id number] / [id number]
[2019-09-19 15:29] VITALS: BP 105/58
[2019-09-19] MEDS: oxyCODONE IR 5 MG TABLET PO PRN (17:39)
--- NOTE | 2019-09-19 18:00 | NUR ---
Patient continues to c/o pain in right hip and left heel. Left heel is also swollen compared to this morning. MD contacted, new orders received, prn medication provided per eMAR.
--- NOTE | 2019-09-19 19:44 | RAD ---
Exam: Bilateral lower extremity venous duplex study INDICATION: Leg swelling TECHNIQUE: Using a combination of real-time ultrasound imaging and color-flow and pulse Doppler imaging techniques along with graded compression and augmentation, duplex evaluation of the deep venous systems of bilateral lower extremity was performed. Multiple images were obtained. Findings: There is no sonographic evidence for deep venous thrombosis involving the visualized deep venous structures of the bilateral lower extremity. IMPRESSION: No acute DVT in the bilateral lower extremities. Electronically signed by: Noemí Lagos MD (09/19/2019 7:42 PM) [facility]
[2019-09-19 20:27] LABS: BASO % 1 % (0-3); EOS # 0.2 x10^3/uL (0.0-0.7); EOS % 6 % (0-3); HEMATOCRIT 23.2 % (36.0-47.0); HEMOGLOBIN 7.9 g/dL (12.0-15.5); LYMPH # 0.8 x10^3/uL (1.0-4.8); LYMPH % 24 % (24-48); MEAN CORPUSCULAR HEMOGLOBIN 34 pg (25-35); MEAN CORPUSCULAR HGB CONC 34 g/dL (31-37); MEAN CORPUSCULAR VOLUME 100 fL (79-100); MONO # 0.3 x10^3/uL (0.0-1.1); MONO % 8 % (0-9); NEUT % 61 % (31-73); PLATELET COUNT 150 x10^3/uL (140-400); RED BLOOD COUNT 2.33 x10^6/uL (3.50-5.40); RED CELL DISTRIBUTION WIDTH 16.1 % (11.5-14.5); WHITE BLOOD COUNT 3.3 x10^3/uL (4.0-11.0)
[2019-09-19 20:39] LABS: ALBUMIN/GLOBULIN RATIO 0.6 (1.0-1.7); C REACTIVE PROTEIN 36.7 mg/L (0-3.3); CREATININE 1.5 mg/dL (0.6-1.0); GFR 32.9; POTASSIUM 4.5 mmol/L (3.5-5.1); TOTAL BILIRUBIN 0.5 mg/dL (0.2-1.0); TOTAL PROTEIN 5.4 g/dL (6.4-8.2)
[2019-09-19] MEDS: MIRTAZAPINE 7.5 MG TABLET. PO SCH (21:02)
[2019-09-19] MEDS: CHOLECALCIFEROL (VITAMIN D3) 1,000 UNIT TABLET PO SCH (21:02)
[2019-09-19] MEDS: DOCUSATE SODIUM 100 MG CAPSULE PO SCH (21:02)
[2019-09-19] MEDS: FERROUS SULFATE 325 MG TABLET. PO SCH (21:02)
[2019-09-19] MEDS: ATORVASTATIN CALCIUM 20 MG TABLET PO SCH (21:02)
[2019-09-19] MEDS: INSULIN GLARGINE SYRINGE. SQ SCH (21:12)
[2019-09-19 21:17] LABS: SEDIMENTATION RATE 45 (0-25)
--- NOTE | 2019-09-20 00:46 | PN ---
DATE: 09/19/2019 SUBJECTIVE: The patient was seen today, met with the staff, chart reviewed. The patient staying in bed, complaining of pain in both hips. Staff reports any major behavior problems, she did not have any falls except she is complaining of pain and getting narcotics as needed. The patient apparently had a fracture problems before she came in here. OBJECTIVE: VITAL SIGNS: Temperature 97.8, blood pressure 154/69, pulse 60, respirations 14, O2 sat 98%. Slept about 7 hours last night. LABORATORY DATA: The patient's lab reviewed, fluctuating blood sugar. The patient's hemoglobin A1c is 7.6. The patient's BUN 27, creatinine 1.3. MEDICATIONS: The patient's current medications include insulin including Lantus and Humalog. The patient is also on metoprolol. The patient's psych medications include Seroquel 12.5 mg b.i.d., mirtazapine 7.5 mg at night. The patient apparently is not having any side effects to the medications. The patient still hard of hearing. Also, poor vision. ASSESSMENT: 1. 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 2. Major depressive disorder, single episode. PLAN: To continue with the treatment. LENGTH OF STAY: 6-8 days. MOLINA SINGH MD DR: PEDRO/austen JOB#: [id number] / [id number]
--- NOTE | 2019-09-20 01:58 | RAD ---
HIP RIGHT 2 VIEW DATE: 09/19/2019 5:07 PM INDICATION: Hip pain. Recent right hip surgery. COMPARISON: None. FINDINGS/ IMPRESSION: Right hip fracture status post ORIF. Surgical hardware is intact. Hip joint is congruent. Electronically signed by: Nick Maria MD (09/20/2019 1:55 AM) [facility]
--- NOTE | 2019-09-20 02:02 | RAD ---
ANKLE BILAT 2V DATE: 09/19/2019 5:07 PM INDICATION: Pain. Right calcaneus fracture. COMPARISON: None. FINDINGS/ IMPRESSION: Right: Ankle joint is congruent. Degenerative changes of the talocalcaneal joint. Plantar calcaneal enthesophyte. Discrete calcaneus fracture line not well visualized, correlate with outside imaging. Left: No acute fracture. Ankle joint is congruent. Atherosclerotic vascular calcifications. Electronically signed by: Nick Maria MD (09/20/2019 1:59 AM) [facility]
--- NOTE | 2019-09-20 03:58 | NUR ---
Nsg Note: Patient in room at time of medication administration and assessments. Patient was asking about status of labs, "Did we find out if I have Leukemia?" Unaware of what patient was referring too, went to check labs. Labs came in late and were all completely out of whack (ESR, DDIMER, BUN, CR, CRP, etc.,) Patient had hip surgery a couple weeks ago and does have a blood disorder, however, unaware of why these labs were warranted to begin with and some of the labs out of whack, do not have direct correlation to disorder (to RNs knowledge). Unsure of what has or has not been communicated on patient prior to all of this. Patient assessed full head to toe when labs reviewed. Patient denying any chest pain, difficulty breathing, cough etc., Labs printed out and reviewed by both RNs on staff. Will pass on to day shift as STAT to review with MD (MD put lab orders in and doppler, etc.,) Chest x-ray was also ordered for the AM to check for possible PEs as it had not been ordered prior. Will continue to monitor patient closely on shift. Patient calm, compliant and cooperative. No notable behaviors at this time.
[2019-09-20 05:16] VITALS: BP 125/65
[2019-09-20] MEDS: oxyCODONE IR 5 MG TABLET PO PRN ×2 (05:28→20:41)
[2019-09-20] MEDS: MAGNESIUM OXIDE 400 MG TABLET PO SCH ×3 (09:25→20:40)
[2019-09-20] MEDS: QUEtiapine 25 MG TABLET. PO SCH ×2 (09:26→20:40)
[2019-09-20] MEDS: ASPIRIN 325 MG TABLET PO SCH ×2 (09:26→20:40)
[2019-09-20] MEDS: CALCIUM CARB/VIT D3 500/200 TABLET PO SCH ×2 (09:26→17:28)
--- NOTE | 2019-09-20 09:26 | RAD ---
EXAM: Chest, single view. HISTORY: Elevated d-dimer. COMPARISON: None. FINDINGS: Frontal views of the chest are obtained. There is no infiltrate, pleural effusion or pneumothorax. The heart is normal in size. There is faint increased opacity overlying the right upper lobe due to overlying osseous and soft tissue shadows. IMPRESSION: No acute pulmonary finding. Electronically signed by: Cindy Her MD (09/20/2019 9:23 AM) [place] [id number]
[2019-09-20] MEDS: ISOSORBIDE MONONITRATE ER 30 MG TAB.ER.24H PO SCH (09:27)
[2019-09-20] MEDS: METOPROLOL SUCC 24HR ER 50 MG TAB.ER.24H. PO SCH (09:27)
[2019-09-20] MEDS: INSULIN LISPRO 300 UNITS/3 ML VIAL. SQ SCH ×3 (09:29→17:33)
--- NOTE | 2019-09-20 13:22 | TX PLAN ---
Interdisciplinary Tx Plan Admission Information Sep 14, 2019 at 15:35 Legal Status (on Admission): Voluntary DPOA/Guardian Name: Jagjit Douglas Contact Other Contact Name: iMguelina Kaufman Other Contact Verified Code Status: DNR Allergies: Coded Allergies: tyloxapol (Verified Allergy, Unknown, 09/14/19) zolpidem (Verified Allergy, Unknown, 09/14/19) Diagnoses Primary Diagnosis: Dementia with BD Reasons for Admission: Aggressive, Combative, Confusion/Disoriented Problem in Patient's Words: Family thinks this could be due to her procedure; her confusion has increased and she is aggressive which is not her nature. Additional Admission Comments: According to the intake, pt is beligerent, verbally aggressive, increased confusion, fell trying to seed cone picker a walker to throw at staff, agitated, hit and bit scratched,threatening to kill self. Problems Active Problems: verbal aggression physical aggression SI threats Hallucinations Pt Strengths/Limitations Ability for [place]: Poor Cognitive Functioning/Ability: Poor Communication Skills/Ability: Poor Financial Resources: Fair Insight/Judgement: Poor Intellectual Ability: Fair Physical Health: Poor Social Skills: Fair Stability in Family: Good Stability in School/Work: Poor Verbal Skills: Fair Discharge Criteria Discharge Criteria: Able meet basic life need, Adequate arrangements @DC, Imp roved behavior, Improved mood/thought Preliminary Discharge Plan Preliminary DC Plan: Placement Needed Special Precautions Fall Risk: Low Initial D/C Plan Pt sons are currently looking for placement. Identified Discharge Needs: Placement options for AL or Memory Care Currently Utilized Resources Currently Utilized Resources/P: Does have outpt providers (PCP and Psychiatrist) Referrals Community Resources: May need to change providers closer to . Identified Problems/Hx/Goals Objectives/Short-Term Goals Short Term Goals: Dec. Outbursts, Medication Stabilization, Promote Coping Skill Short Term Goals in Patient's: I'm ready to get out of here. I've been here too long. Interventions/Frequency Staff Interventions/Frequency&: Psychiatrist to see pt at least 3x per week. Social work to see pt at least 2x per week. Nursing to complete 15 minute checks daily Encourage to participate in group activities. 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 Community Follow-up Will depend on placement Community Provider/Family Inpu: Between her medical complications, her hearing and the dementia....she is complicated. Treatment Plan Explained Patient/Sole Stainer had this treatment plan explained to him/her as indicated by the signature below and has been given the opportunity to ask questions and make suggestions: Date: Patient/Sole Stainer Signature: Patient/Sole Stainer Decline: LAILA Sylvester Sep 20, 2019 13:22
--- NOTE | 2019-09-20 15:03 | NUR ---
pt attempted tp transfer self to bed and slipped and hit right hip while sliding to the floor. Vitals obtained, pain denies discomfort at this time, Dr. Burton notified and orders for xray received. Message left for patient dpoa to return call to unit regarding patient update.
--- NOTE | 2019-09-20 15:42 | NUR ---
Patient son,Jagjit returned call, informed of patient fall. No questions or concerns voiced per patient family, pt denies discomfort. Pt son states they will visit patient at 1600 visiting time, Xray on unit for xray ordered.
[2019-09-20 15:51] VITALS: BP 112/61
--- NOTE | 2019-09-20 16:01 | RAD ---
2 views right hip 09/20/2019 INDICATION: Fall. Status post ORIF right hip. COMPARISON STUDY: Right hip radiograph June 20, 2019 Discussion: Stable postsurgical changes following ORIF of the right hip. Hardware appears intact. No new fracture or dislocation is identified. Lucency involving the femoral neck consistent with fracture is similar. No acute soft tissue changes noted in the interim. Dense SFA calcification noted. Impression: Grossly stable appearance of postsurgical changes following ORIF of the right hip Electronically signed by: Franko Ramirez MD (09/20/2019 3:58 PM) [facility]
--- NOTE | 2019-09-20 16:08 | NUR ---
Nursing note: Pt was in her room this morning for her meds and assessment. She was compliant with taking her meds whole and was cooperative with her assessment. She had no complaints at the time of her assessment. Pt continues to deny pain at this time. Pt has been withdrawn to her room for most of the day. Will continue to monitor.
[2019-09-20] MEDS: MIRTAZAPINE 7.5 MG TABLET. PO SCH (20:40)
[2019-09-20] MEDS: DOCUSATE SODIUM 100 MG CAPSULE PO SCH (20:40)
[2019-09-20] MEDS: CHOLECALCIFEROL (VITAMIN D3) 1,000 UNIT TABLET PO SCH (20:40)
[2019-09-20] MEDS: ATORVASTATIN CALCIUM 20 MG TABLET PO SCH (20:40)
[2019-09-20] MEDS: FERROUS SULFATE 325 MG TABLET. PO SCH (20:41)
[2019-09-20] MEDS: INSULIN GLARGINE SYRINGE. SQ SCH (20:44)
--- NOTE | 2019-09-20 21:49 | PDOC ---
Exam Note: Donta Note: Please also refer to the separate dictated note~for this date of service dictated separately.~Patient seen individually. Discussed the patient with Nursing staff reviewed the chart.~Reviewed interim history and current functioning. Reviewed vital signs,~Labs/ Radiology~and current medications noted below. Continue current treatment with the changes noted in the dictated addendum note Assessment: Vital Signs/I&O: Vital Signs Date Time Temp Pulse Resp B/P (MAP) Pulse Ox O2 Delivery O2 Flow Rate FiO2 09/20/19 20:41 16 97 Room Air 09/20/19 15:51 98.0 58 112/61 (78) I & O 09/19/19 09/19/19 09/20/19 14:59 22:59 06:59 Intake Total 720 ml 360 ml Balance 720 ml 360 ml Labs: Laboratory Tests Test 09/20/19 07:59 09/20/19 12:08 09/20/19 16:49 09/20/19 19:02 Glucose (Fingerstick) 215 mg/dL (70-99) H 302 mg/dL (70-99) H 200 mg/dL (70-99) H 207 mg/dL (70-99) H Current Medications: I have reviewed the current psychotropics carefully including drug interactions. Risk benefit ratio favors no change other than as noted in my dictated progress note. Diagnosis: Problems: (1) Major neurocognitive disorder, due to vascular disease, with behavioral disturbance, mild (2) Dementia in Alzheimer's disease with delusions (3) Dementia in Alzheimer's disease with depression (4) Dementia, vascular, with delusions (5) Dementia, vascular, with depression (6) Major depression RHIANNA BREAUX MD Sep 20, 2019 21:49
--- NOTE | 2019-09-20 23:08 | NUR ---
Nsg Note: Patient in day room at time of medication administration and assessments. Patient was not in a good mood. Patient kept door checking and wanting to get out of the day room and not letting anyone in or out. Spoke to patient and discussed if she took her medications and cooperated, she could go to bed right after. Patient was in pain. PRN Roxicodone given with HS medications. Patient went to sleep shortly after. No other notable behaviors at this time.
[2019-09-21 05:16] VITALS: BP 128/67
[2019-09-21] MEDS: oxyCODONE IR 5 MG TABLET PO PRN ×2 (06:00→21:17)
[2019-09-21 07:44] LABS: CALCIUM 8.2 mg/dL (8.5-10.1); CREATININE 1.4 mg/dL (0.6-1.0); GFR 35.6; POTASSIUM 4.3 mmol/L (3.5-5.1)
[2019-09-21] MEDS: LENALIDOMIDE 5 MG PO SCH (09:00)
[2019-09-21] MEDS: METOPROLOL SUCC 24HR ER 50 MG TAB.ER.24H. PO SCH (09:04)
[2019-09-21] MEDS: ASPIRIN 325 MG TABLET PO SCH ×2 (09:04→21:17)
[2019-09-21] MEDS: MAGNESIUM OXIDE 400 MG TABLET PO SCH ×3 (09:04→21:17)
[2019-09-21] MEDS: ISOSORBIDE MONONITRATE ER 30 MG TAB.ER.24H PO SCH (09:04)
[2019-09-21] MEDS: QUEtiapine 25 MG TABLET. PO SCH ×2 (09:04→21:17)
[2019-09-21] MEDS: CALCIUM CARB/VIT D3 500/200 TABLET PO SCH ×2 (09:04→17:46)
[2019-09-21] MEDS: INSULIN LISPRO 300 UNITS/3 ML VIAL. SQ SCH ×3 (09:09→17:56)
--- NOTE | 2019-09-21 15:58 | NUR ---
Nursing note: Pt in dining room at time of morning meds and assessment. Pt was compliant with taking her meds whole and was cooperative with her assessment. Pt was pleasant at time of assessment and denied having any pain. Pt later became irritable and began door checking, talking back to staff, and attempted to hit staff. She was unable to be redirected at the time so she was moved to the secure hallway where she laid on the mattress in the quiet room and fell asleep. Will continue to monitor.
[2019-09-21 16:23] VITALS: BP 132/58
--- NOTE | 2019-09-21 17:00 | NUR ---
SW met with Jagjit who wanted to follow up as he was told that pt was having a bad day. SW went over her attempts to hit and scratch as staff; the precipitating event potentially could have been her separation from a male peer who she attempted to hold hands with. For the last couple days, pt has been asking about her significant other. Pt son reports that he does not think that the significant other is able to visit and hopes that she can continue to calm down in order to get her moved to [facility]. Pt son has also put a picture on pt windowsill in hopes that it helps her feel less agitated and more redirectable. Pt son will plan to participate in tx team via phone.
[2019-09-21] MEDS: ATORVASTATIN CALCIUM 20 MG TABLET PO SCH (21:17)
[2019-09-21] MEDS: CHOLECALCIFEROL (VITAMIN D3) 1,000 UNIT TABLET PO SCH (21:17)
[2019-09-21] MEDS: MIRTAZAPINE 7.5 MG TABLET. PO SCH (21:17)
[2019-09-21] MEDS: DOCUSATE SODIUM 100 MG CAPSULE PO SCH (21:17)
[2019-09-21] MEDS: FERROUS SULFATE 325 MG TABLET. PO SCH (21:18)
[2019-09-21] MEDS: INSULIN GLARGINE SYRINGE. SQ SCH (21:19)
--- NOTE | 2019-09-21 22:20 | PN ---
DATE: 09/20/2019 PSYCHIATRIC PROGRESS NOTE This late entry 09/20/2019 covers elements not covered in my initial note. SUBJECTIVE: I met with the patient in the evening. Per TREE Ricardo, the patient slept 8-3/4 hours previous night. The patient remains confused, compliant with medications. She fell in the evening while transferring from her bed to wheelchair, oriented x 1. REVIEW OF SYSTEMS: Impaired ambulation. No CV, , pulmonary, eye, ENT system symptoms on review. Reliability poor. MENTAL STATUS EXAM: Oriented to herself. Insight, judgment, recent and remote memory, attention, concentration, fund of knowledge poor, consistent with her diagnoses. IMPRESSION: Major neurocognitive disorder, Alzheimer, vascular with delusion, depression, behavioral disturbance; anxiety disorder, unspecified; impulse control disorder, unspecified. PLAN: Continue Seroquel 12.5 mg b.i.d., Remeron 7.5 mg at bedtime, assess baseline, then make further adjustments as clinically indicated. MAN Geeta BREAUX MD DR: DARRELL/austen JOB#: [id number] / [id number]
--- NOTE | 2019-09-21 23:25 | PDOC ---
Exam Note: Donta Note: Please also refer to the separate dictated note~for this date of service dictated separately.~Patient seen individually. Discussed the patient with Nursing staff reviewed the chart.~Reviewed interim history and current functioning. Reviewed vital signs,~Labs/ Radiology~and current medications noted below. Continue current treatment with the changes noted in the dictated addendum note Assessment: Vital Signs/I&O: Vital Signs Date Time Temp Pulse Resp B/P (MAP) Pulse Ox O2 Delivery O2 Flow Rate FiO2 09/21/19 21:17 16 96 Room Air 09/21/19 16:23 97.4 61 132/58 (82) I & O 09/20/19 09/20/19 09/21/19 14:59 22:59 06:59 Intake Total 840 ml 300 ml Balance 840 ml 300 ml Labs: Laboratory Tests Test 09/21/19 07:00 09/21/19 07:23 09/21/19 12:11 09/21/19 16:56 Sodium Level 136 mmol/L (136-145) Potassium Level 4.3 mmol/L (3.5-5.1) Chloride Level 102 mmol/L (98-107) Carbon Dioxide Level 30 mmol/L (21-32) Anion Gap 4 (6-14) L Blood Urea Nitrogen 35 mg/dL (7-20) H Creatinine 1.4 mg/dL (0.6-1.0) H Estimated GFR (Cockcroft-Gault) 35.6 Glucose Level 228 mg/dL (70-99) H Calcium Level 8.2 mg/dL (8.5-10.1) L Magnesium Level 1.9 mg/dL (1.8-2.4) Glucose (Fingerstick) 239 mg/dL (70-99) H 181 mg/dL (70-99) H 160 mg/dL (70-99) H Test 09/21/19 19:30 Glucose (Fingerstick) 152 mg/dL (70-99) H Current Medications: I have reviewed the current psychotropics carefully including drug interactions. Risk benefit ratio favors no change other than as noted in my dictated progress note. Diagnosis: Problems: (1) Major depression (2) Dementia, vascular, with depression (3) Dementia, vascular, with delusions (4) Dementia in Alzheimer's disease with depression (5) Dementia in Alzheimer's disease with delusions (6) Major neurocognitive disorder, due to vascular disease, with behavioral disturbance, mild RHIANNA BREAUX MD Sep 21, 2019 23:25
--- NOTE | 2019-09-22 05:57 | NUR ---
NSg Note: Patient calm, compliant, cooperative in day room at time of medication admnistration. Patient had some pain, PRN Roxicodone given with HS medications. Patient was interacting with other patients. No other notable behaviors at this time.
[2019-09-22 06:11] VITALS: BP 127/65
[2019-09-22] MEDS: INSULIN LISPRO 300 UNITS/3 ML VIAL. SQ SCH ×3 (08:00→17:37)
[2019-09-22] MEDS: CALCIUM CARB/VIT D3 500/200 TABLET PO SCH ×2 (08:33→17:35)
[2019-09-22] MEDS: MAGNESIUM OXIDE 400 MG TABLET PO SCH ×3 (08:33→20:13)
[2019-09-22] MEDS: ISOSORBIDE MONONITRATE ER 30 MG TAB.ER.24H PO SCH (08:34)
[2019-09-22] MEDS: QUEtiapine 25 MG TABLET. PO SCH ×2 (08:34→20:13)
[2019-09-22] MEDS: METOPROLOL SUCC 24HR ER 50 MG TAB.ER.24H. PO SCH (08:34)
[2019-09-22] MEDS: ASPIRIN 325 MG TABLET PO SCH ×2 (08:35→20:12)
[2019-09-22] MEDS: SERTRALINE 25 MG TABLET. PO SCH (08:35)
[2019-09-22] MEDS: oxyCODONE IR 5 MG TABLET PO PRN (14:03)
--- NOTE | 2019-09-22 15:28 | TX PLAN ---
Interdisciplinary Tx Plan Admission Information Sep 14, 2019 at 15:35 Legal Status (on Admission): Voluntary DPOA/Guardian Name: Jagjit Douglas Contact Other Contact Name: Miguelina Kaufman Other Contact Verified Code Status: DNR Allergies: Coded Allergies: tyloxapol (Verified Allergy, Unknown, 09/14/19) zolpidem (Verified Allergy, Unknown, 09/14/19) Diagnoses Primary Diagnosis: Dementia with BD Reasons for Admission: Aggressive, Combative, Confusion/Disoriented Problem in Patient's Words: Family thinks this could be due to her procedure; her confusion has increased and she is aggressive which is not her nature. Additional Admission Comments: According to the intake, pt is beligerent, verbally aggressive, increased confusion, fell trying to pickle sorter a walker to throw at staff, agitated, hit and bit scratched,threatening to kill self. Problems Active Problems: verbal aggression physical aggression SI threats Hallucinations Pt Strengths/Limitations Ability for Terry: Poor Cognitive Functioning/Ability: Poor Communication Skills/Ability: Poor Financial Resources: Fair Insight/Judgement: Poor Intellectual Ability: Fair Physical Health: Poor Social Skills: Fair Stability in Family: Good Stability in School/Work: Poor Verbal Skills: Fair Discharge Criteria Discharge Criteria: Able meet basic life need, Adequate arrangements @DC, Imp roved behavior, Improved mood/thought Preliminary Discharge Plan Preliminary DC Plan: Placement Needed Special Precautions Fall Risk: Low Initial D/C Plan Pt sons are currently looking for placement. Identified Discharge Needs: Placement options for AL or Memory Care Currently Utilized Resources Currently Utilized Resources/P: Does have outpt providers (PCP and Psychiatrist) Referrals Community Resources: May need to change providers closer to . Identified Problems/Hx/Goals Objectives/Short-Term Goals Short Term Goals: Dec. Outbursts, Medication Stabilization, Promote Coping Skill Short Term Goals in Patient's: I'm ready to get out of here. I've been here too long. Interventions/Frequency Staff Interventions/Frequency&: Psychiatrist to see pt at least 3x per week. Social work to see pt at least 2x per week. Nursing to complete 15 minute checks daily Encourage to participate in group activities. 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 Community Follow-up Will depend on placement Community Provider/Family Inpu: Between her medical complications, her hearing and the dementia....she is complicated. Treatment Plan Explained Patient/Broadcast Producer had this treatment plan explained to him/her as indicated by the signature below and has been given the opportunity to ask questions and make suggestions: Date: Patient/Broadcast Producer Signature: Status Update Update Pt is eating 75% of meals and sleeping 8 hours a night. Pt has episodes of irritability, and attempts to be combative and verbally aggressive; which has .. Pt is compliant with medications and cares. At this time, pt sons have found placement at the [facility]. Pt could potentially look at discharging the latter part of next week. LAILA MUHAMMAD Sep 22, 2019 15:28
[2019-09-22 16:14] VITALS: BP 127/54
--- NOTE | 2019-09-22 18:00 | NUR ---
patient has been calm, compliant, pleasantly confused, and delusional throughout this shift. She believes she is at work. She has complained of mild LBP, but denies any interventions except a heating pad which we are unable to provide. Will continue to monitor and report to oncoming shift.
[2019-09-22] MEDS: DOCUSATE SODIUM 100 MG CAPSULE PO SCH (20:12)
[2019-09-22] MEDS: FERROUS SULFATE 325 MG TABLET. PO SCH (20:13)
[2019-09-22] MEDS: MIRTAZAPINE 7.5 MG TABLET. PO SCH (20:13)
[2019-09-22] MEDS: ATORVASTATIN CALCIUM 20 MG TABLET PO SCH (20:13)
[2019-09-22] MEDS: CHOLECALCIFEROL (VITAMIN D3) 1,000 UNIT TABLET PO SCH (20:14)
--- NOTE | 2019-09-22 20:42 | PDOC ---
Exam Note: Donta Note: Please also refer to the separate dictated note~for this date of service dictated separately.~Patient seen individually. Discussed the patient with Nursing staff reviewed the chart.~Reviewed interim history and current functioning. Reviewed vital signs,~Labs/ Radiology~and current medications noted below. Continue current treatment with the changes noted in the dictated addendum note Assessment: Vital Signs/I&O: Vital Signs Date Time Temp Pulse Resp B/P (MAP) Pulse Ox O2 Delivery O2 Flow Rate FiO2 09/22/19 20:16 94 Room Air 09/22/19 16:14 98.1 61 16 127/54 (78) I & O 09/21/19 09/21/19 09/22/19 15:00 23:00 07:00 Intake Total 560 ml 240 ml Balance 560 ml 240 ml Labs: Laboratory Tests Test 09/22/19 07:33 09/22/19 11:46 09/22/19 17:26 09/22/19 18:57 Glucose (Fingerstick) 99 mg/dL (70-99) 360 mg/dL (70-99) H 271 mg/dL (70-99) H 314 mg/dL (70-99) H Current Medications: Meds: Current Medications Medications (Trade) Dose Ordered Sig/Celia Route PRN Reason Start Time Stop Time Status Last Admin Dose Admin Sertraline HCl (Zoloft) 25 mg DAILY PO 09/22/19 09:00 09/24/19 23:50 09/22/19 08:35 I have reviewed the current psychotropics carefully including drug interactions. Risk benefit ratio favors no change other than as noted in my dictated progress note. 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
[2019-09-22] MEDS: INSULIN GLARGINE SYRINGE. SQ SCH (21:44)
--- NOTE | 2019-09-22 23:10 | NUR ---
Nursing note: Assumed care of pt in the day room. She was calm and compliant with meds and assessment. Pt is pleasantly confused. She was ready for bed. No c/o pain at this time. No delusions or hallucinations, no behaviors.
[2019-09-23 04:57] VITALS: BP 114/55
[2019-09-23] MEDS: ISOSORBIDE MONONITRATE ER 30 MG TAB.ER.24H PO SCH (08:00)
[2019-09-23] MEDS: MAGNESIUM OXIDE 400 MG TABLET PO SCH ×3 (08:01→20:07)
[2019-09-23] MEDS: CALCIUM CARB/VIT D3 500/200 TABLET PO SCH ×2 (08:01→17:26)
[2019-09-23] MEDS: METOPROLOL SUCC 24HR ER 50 MG TAB.ER.24H. PO SCH (08:01)
[2019-09-23] MEDS: ASPIRIN 325 MG TABLET PO SCH ×2 (08:01→20:06)
[2019-09-23] MEDS: QUEtiapine 25 MG TABLET. PO SCH ×2 (08:02→20:07)
[2019-09-23] MEDS: SERTRALINE 25 MG TABLET. PO SCH (08:02)
[2019-09-23] MEDS: LENALIDOMIDE 5 MG PO SCH (08:06)
[2019-09-23] MEDS: oxyCODONE IR 5 MG TABLET PO PRN ×2 (08:06→15:47)
[2019-09-23] MEDS: INSULIN LISPRO 300 UNITS/3 ML VIAL. SQ SCH ×3 (08:09→17:27)
--- NOTE | 2019-09-23 09:00 | NUR ---
Patient was delusional, mildly angry, and compliant with medications this morning. PRN medications provided for hip pain per eMAR. Patient was complaining that she had done six plug-ins and had only been paid for one, stated she was upset about that. Patient did not eat at breakfast, stated she couldn't afford it, did not change her mind when staff informed her that it was already paid for. Will continue to monitor
--- NOTE | 2019-09-23 12:13 | NUR ---
WEEKLY ACTIVITY THERAPY NOTE Date of Admission: 09/14/2019 Date of AT Assessment: 09/16/2019 Goal aimed: to increase socialization and engagement Initial Goal: Pt. will participate in three Activity Therapy groups or individual sessions per week. Weekly progress towards goal: 2 as of Thursday Group participation level: moderate and full in the two groups Weekly highlights: socializing with staff on Thursday afternoon, enjoyed brownies last Behaviors observed: sleeping often, generally disinterested in groups, quiet, calm Plan: no change to goal Beneficial adaptations:
[2019-09-23 16:08] VITALS: BP 147/64
[2019-09-23] MEDS: FERROUS SULFATE 325 MG TABLET. PO SCH (20:06)
[2019-09-23] MEDS: DOCUSATE SODIUM 100 MG CAPSULE PO SCH (20:06)
[2019-09-23] MEDS: CHOLECALCIFEROL (VITAMIN D3) 1,000 UNIT TABLET PO SCH (20:07)
[2019-09-23] MEDS: ATORVASTATIN CALCIUM 20 MG TABLET PO SCH (20:07)
[2019-09-23] MEDS: MIRTAZAPINE 7.5 MG TABLET. PO SCH (20:07)
[2019-09-23] MEDS: INSULIN GLARGINE SYRINGE. SQ SCH (20:11)
--- NOTE | 2019-09-23 21:33 | PDOC ---
Exam Note: Donta Note: Please also refer to the separate dictated note~for this date of service dictated separately.~Patient seen individually. Discussed the patient with Nursing staff reviewed the chart.~Reviewed interim history and current functioning. Reviewed vital signs,~Labs/ Radiology~and current medications noted below. Continue current treatment with the changes noted in the dictated addendum note Assessment: Vital Signs/I&O: Vital Signs Date Time Temp Pulse Resp B/P (MAP) Pulse Ox O2 Delivery O2 Flow Rate FiO2 09/23/19 19:17 98 Room Air 09/23/19 16:08 97.8 63 20 147/64 (91) I & O 09/22/19 09/22/19 09/23/19 15:00 23:00 07:00 Intake Total 600 ml 240 ml Balance 600 ml 240 ml Labs: Laboratory Tests Test 09/23/19 07:45 09/23/19 11:48 09/23/19 12:08 09/23/19 16:46 Glucose (Fingerstick) 131 mg/dL (70-99) H 44 mg/dL (70-99) L 71 mg/dL (70-99) 245 mg/dL (70-99) H Test 09/23/19 19:29 Glucose (Fingerstick) 230 mg/dL (70-99) H Current Medications: Meds: Current Medications Medications (Trade) Dose Ordered Sig/Celia Route PRN Reason Start Time Stop Time Status Last Admin Dose Admin Insulin Human Lispro (HumaLOG) 8 units TIDAC SQ 09/23/19 07:30 09/23/19 17:27 I have reviewed the current psychotropics carefully including drug interactions. Risk benefit ratio favors no change other than as noted in my dictated progress note. Diagnosis: Problems: (1) Major depression (2) Dementia, vascular, with depression (3) Dementia, vascular, with delusions (4) Dementia in Alzheimer's disease with depression (5) Dementia in Alzheimer's disease with delusions (6) Major neurocognitive disorder, due to vascular disease, with behavioral disturbance, mild RHIANNA BREAUX MD Sep 23, 2019 21:33
--- NOTE | 2019-09-23 22:52 | PN ---
DATE: 09/22/2019 PSYCHIATRIC PROGRESS NOTE This late entry, 09/22/2019, covers elements not covered in my initial note. SUBJECTIVE: I met with the patient in the evening of 09/22/2019. Per nursing report, the patient did better previous night, but was door checking, irritable at times, confused. She does better after she receives something for her pain. She slept 6-3/4 hours previous night. REVIEW OF SYSTEMS: Ambulation impaired with walker. No CV, , pulmonary, eye system symptoms on review. Reliability poor. MENTAL STATUS EXAM: Oriented to herself. Insight, judgment, recent and remote memory, attention, concentration, fund of knowledge poor, consistent with her diagnosis mentioned in my initial note. PLAN: Increase Zoloft to 50 mg a day after she has been on 25 for 3 days. Maintain Remeron 7.5 mg at bedtime, Seroquel 12.5 b.i.d. Rest unchanged for now. MAN Geeta BREAUX MD DR: DARRELL/austen JOB#: [id number] / [id number]
--- NOTE | 2019-09-23 23:00 | PN ---
DATE: 09/21/2019 PSYCHIATRIC PROGRESS NOTE This late entry 09/21/2019 covers elements not covered in my initial note. SUBJECTIVE: I met with the patient in the evening. Per TREE Uriarte, the patient slept 7-1/2 hours previous night. She was compliant in the morning. Later in the day, she was agitated, then slept. REVIEW OF SYSTEMS: No CV, , pulmonary, eye system symptoms on review. Reliability poor. Gait unsteady. MENTAL STATUS EXAM: Oriented to herself. Insight, judgment, recent and remote memory, attention, concentration, fund of knowledge poor, consistent with her diagnosis mentioned in my initial note. PLAN: Start Zoloft 25 mg a day. Maintain Seroquel 12.5 b.i.d., Remeron 7.5 mg at bedtime. MAN Geeta BREAUX MD DR: DARRELL/austen JOB#: [id number] / [id number]
--- NOTE | 2019-09-23 23:24 | NUR ---
Nursing note: Assumed care of pt in the day room where she was sitting quietly lone and watching the movie on tv. She was pleasantly confused but compliant and interactive. She had no behaviors and no c/o pain at this time
[2019-09-24 04:52] VITALS: BP 156/69
[2019-09-24] MEDS: METOPROLOL SUCC 24HR ER 50 MG TAB.ER.24H. PO SCH (09:00)
[2019-09-24] MEDS: oxyCODONE IR 5 MG TABLET PO PRN ×2 (09:01→18:33)
[2019-09-24] MEDS: ISOSORBIDE MONONITRATE ER 30 MG TAB.ER.24H PO SCH (09:02)
[2019-09-24] MEDS: MAGNESIUM OXIDE 400 MG TABLET PO SCH ×3 (09:02→19:50)
[2019-09-24] MEDS: INSULIN LISPRO 300 UNITS/3 ML VIAL. SQ SCH ×3 (09:03→17:18)
[2019-09-24] MEDS: CALCIUM CARB/VIT D3 500/200 TABLET PO SCH ×2 (09:05→17:16)
[2019-09-24] MEDS: ASPIRIN 325 MG TABLET PO SCH ×2 (09:05→19:50)
[2019-09-24] MEDS: QUEtiapine 25 MG TABLET. PO SCH ×2 (09:06→19:50)
[2019-09-24] MEDS: SERTRALINE 25 MG TABLET. PO SCH (09:06)
[2019-09-24 16:09] VITALS: BP 124/66
[2019-09-24] MEDS: ATORVASTATIN CALCIUM 20 MG TABLET PO SCH (19:50)
[2019-09-24] MEDS: CHOLECALCIFEROL (VITAMIN D3) 1,000 UNIT TABLET PO SCH (19:50)
[2019-09-24] MEDS: MIRTAZAPINE 7.5 MG TABLET. PO SCH (19:50)
[2019-09-24] MEDS: FERROUS SULFATE 325 MG TABLET. PO SCH (19:50)
[2019-09-24] MEDS: DOCUSATE SODIUM 100 MG CAPSULE PO SCH (19:51)
[2019-09-24] MEDS: INSULIN GLARGINE SYRINGE. SQ SCH (19:55)
--- NOTE | 2019-09-24 21:29 | PDOC ---
Exam Note: Donta Note: Please also refer to the separate dictated note~for this date of service dictated separately.~Patient seen individually. Discussed the patient with Nursing staff reviewed the chart.~Reviewed interim history and current functioning. Reviewed vital signs,~Labs/ Radiology~and current medications noted below. Continue current treatment with the changes noted in the dictated addendum note Assessment: Vital Signs/I&O: Vital Signs Date Time Temp Pulse Resp B/P (MAP) Pulse Ox O2 Delivery O2 Flow Rate FiO2 09/24/19 19:33 18 100 Room Air 09/24/19 16:09 98.2 62 124/66 (85) I & O 09/23/19 09/23/19 09/24/19 15:00 23:00 07:00 Intake Total 240 ml 600 ml 120 ml Balance 240 ml 600 ml 120 ml Labs: Laboratory Tests Test 09/24/19 07:23 09/24/19 11:16 09/24/19 16:03 09/24/19 19:19 Glucose (Fingerstick) 253 mg/dL (70-99) H 258 mg/dL (70-99) H 229 mg/dL (70-99) H 137 mg/dL (70-99) H Current Medications: I have reviewed the current psychotropics carefully including drug interactions. Risk benefit ratio favors no change other than as noted in my dictated progress note. Diagnosis: Problems: (1) Major depression (2) Dementia, vascular, with depression (3) Dementia, vascular, with delusions (4) Dementia in Alzheimer's disease with depression (5) Dementia in Alzheimer's disease with delusions (6) Major neurocognitive disorder, due to vascular disease, with behavioral disturbance, mild RHIANNA BREAUX MD Sep 24, 2019 21:29
--- NOTE | 2019-09-24 22:24 | NUR ---
Nursing note: Assumed care of pt in the day room. She was calm and pleasant, compliant with meds and assessment. She denied pain and had no negative behaviors.
[2019-09-25 05:33] VITALS: BP 107/58
[2019-09-25] MEDS: ASPIRIN 325 MG TABLET PO SCH ×2 (08:41→20:49)
[2019-09-25] MEDS: CALCIUM CARB/VIT D3 500/200 TABLET PO SCH ×2 (08:41→17:34)
[2019-09-25] MEDS: oxyCODONE IR 5 MG TABLET PO PRN ×2 (08:42→13:44)
[2019-09-25] MEDS: METOPROLOL SUCC 24HR ER 50 MG TAB.ER.24H. PO SCH (08:43)
[2019-09-25] MEDS: QUEtiapine 25 MG TABLET. PO SCH ×2 (08:44→20:49)
[2019-09-25] MEDS: ISOSORBIDE MONONITRATE ER 30 MG TAB.ER.24H PO SCH (08:44)
[2019-09-25] MEDS: MAGNESIUM OXIDE 400 MG TABLET PO SCH ×3 (08:44→20:50)
[2019-09-25] MEDS: DULoxetine HCL 30 MG CAPSULE.DR PO SCH (08:44)
[2019-09-25] MEDS: INSULIN LISPRO 300 UNITS/3 ML VIAL. SQ SCH ×3 (08:47→17:36)
[2019-09-25] MEDS: LENALIDOMIDE 5 MG PO SCH (08:48)
[2019-09-25] MEDS ORDERED: SERTRALINE 50 MG TABLET. PO SCH (09:00)
[2019-09-25 15:36] VITALS: BP 144/54
--- NOTE | 2019-09-25 17:40 | NUR ---
Has been cooperative and compliant with all assessments and medications. No adverse behaviors. Anticipates going home soon with her family, per her report.
[2019-09-25] MEDS: MIRTAZAPINE 7.5 MG TABLET. PO SCH (20:49)
[2019-09-25] MEDS: FERROUS SULFATE 325 MG TABLET. PO SCH (20:49)
[2019-09-25] MEDS: ATORVASTATIN CALCIUM 20 MG TABLET PO SCH (20:49)
[2019-09-25] MEDS: CHOLECALCIFEROL (VITAMIN D3) 1,000 UNIT TABLET PO SCH (20:49)
[2019-09-25] MEDS: DOCUSATE SODIUM 100 MG CAPSULE PO SCH (20:50)
[2019-09-25] MEDS: INSULIN GLARGINE SYRINGE. SQ SCH (20:55)
--- NOTE | 2019-09-25 21:05 | PDOC ---
Exam Note: Donta Note: Please also refer to the separate dictated note~for this date of service dictated separately.~Patient seen individually. Discussed the patient with Nursing staff reviewed the chart.~Reviewed interim history and current functioning. Reviewed vital signs,~Labs/ Radiology~and current medications noted below. Continue current treatment with the changes noted in the dictated addendum note Assessment: Vital Signs/I&O: Vital Signs Date Time Temp Pulse Resp B/P (MAP) Pulse Ox O2 Delivery O2 Flow Rate FiO2 09/25/19 15:36 97.3 51 18 144/54 (84) 98 09/25/19 13:44 Room Air I & O 09/24/19 09/24/19 09/25/19 14:59 22:59 06:59 Intake Total 840 ml 240 ml 240 ml Balance 840 ml 240 ml 240 ml Labs: Laboratory Tests Test 09/25/19 07:25 09/25/19 11:22 09/25/19 17:09 09/25/19 19:13 Glucose (Fingerstick) 142 mg/dL (70-99) H 333 mg/dL (70-99) H 318 mg/dL (70-99) H 209 mg/dL (70-99) H Current Medications: Meds: Current Medications Medications (Trade) Dose Ordered Sig/Celia Route PRN Reason Start Time Stop Time Status Last Admin Dose Admin Duloxetine HCl (Cymbalta) 30 mg DAILY PO 09/25/19 09:00 09/27/19 10:00 09/25/19 08:44 I have reviewed the current psychotropics carefully including drug interactions. Risk benefit ratio favors no change other than as noted in my dictated progress note. Diagnosis: Problems: (1) Major depression (2) Dementia, vascular, with depression (3) Dementia, vascular, with delusions (4) Dementia in Alzheimer's disease with depression (5) Dementia in Alzheimer's disease with delusions (6) Major neurocognitive disorder, due to vascular disease, with behavioral d istramon, RHIANNA Saleh MD Sep 25, 2019 21:05
--- NOTE | 2019-09-26 02:26 | NUR ---
Last evening pt was in day room pleasant and social with staff and peers. Meds were taken whole without difficulty. No behaviors this shift and she has been sleeping well.
[2019-09-26 05:15] VITALS: BP 132/60
[2019-09-26] MEDS: ASPIRIN 325 MG TABLET PO SCH ×2 (08:23→20:14)
[2019-09-26] MEDS: CALCIUM CARB/VIT D3 500/200 TABLET PO SCH ×2 (08:23→17:21)
[2019-09-26] MEDS: DULoxetine HCL 30 MG CAPSULE.DR PO SCH (08:24)
[2019-09-26] MEDS: QUEtiapine 25 MG TABLET. PO SCH ×2 (08:24→20:13)
[2019-09-26] MEDS: METOPROLOL SUCC 24HR ER 50 MG TAB.ER.24H. PO SCH (08:24)
[2019-09-26] MEDS: ISOSORBIDE MONONITRATE ER 30 MG TAB.ER.24H PO SCH (08:24)
[2019-09-26] MEDS: MAGNESIUM OXIDE 400 MG TABLET PO SCH ×3 (08:25→20:14)
[2019-09-26] MEDS: INSULIN LISPRO 300 UNITS/3 ML VIAL. SQ SCH ×3 (08:28→17:22)
--- NOTE | 2019-09-26 10:03 | PN ---
DATE: 09/23/2019 PSYCHIATRIC PROGRESS NOTE This late entry 09/23 covers elements not covered in my initial note. SUBJECTIVE: I met with the patient evening of 09/23 and staffed at a treatment team meeting earlier in the day. The patient's son, Jagjit, attended the treatment team meeting. We had a lengthy discussion about her history of progressive memory deficits. She is sleeping 6 hours, appetite 50%. Will be transitioning to [facility] per son. REVIEW OF SYSTEMS: Ambulation impaired, in wheelchair/walker. No CV, , pulmonary, eye, ENT system symptoms on review. Reliability varies. MENTAL STATUS EXAMINATION: Oriented to herself. Insight, judgment, recent and remote memory, attention, concentration, fund of knowledge poor, consistent with her diagnosis mentioned in my initial note. IMPRESSION: Major neurocognitive disorder; Alzheimer; vascular with delusion; depression; behavioral disturbance; anxiety disorder, unspecified; impulse control disorder, unspecified. PLAN: Zoloft was increased to 50 mg a day. Maintain Remeron 7.5 mg at bedtime, Seroquel 12.5 mg b.i.d. Rest unchanged for now. MAN Geeta BREAUX MD DR: DARRELL/austen JOB#: [id number] / [id number]
--- NOTE | 2019-09-26 10:06 | PN ---
DATE: 09/24/2019 PSYCHIATRIC PROGRESS NOTE This late entry 09/24 covers elements not covered in my initial note. SUBJECTIVE: I met with the patient evening of 09/24. The patient slept 5-1/4 hours previous night. She gets agitated consequent to pain, pulled a bandage off the hip incision, remains confused. REVIEW OF SYSTEMS: Ambulation impaired, in wheelchair. No CV, , pulmonary, eye, ENT system symptoms on review. Reliability poor. MENTAL STATUS EXAMINATION: Oriented to herself. Insight, judgment, recent and remote memory, attention, concentration, fund of knowledge poor, consistent with her diagnoses. IMPRESSION: Major neurocognitive disorder, Alzheimer, vascular with delusion, depression, behavioral disturbance. Rest unchanged. PLAN: Given her chronic pain worsening her agitation, we will go ahead and change the Zoloft to Cymbalta which should additionally help with the pain and be more efficacious antidepressant. Change Zoloft to Cymbalta 30 mg a day for 3 days, then 60 mg a day thereafter. Maintain Seroquel, Remeron unchanged for now. MAN Geeta BREAUX MD DR: DARRELL/austen JOB#: [id number] / [id number]
--- NOTE | 2019-09-26 12:29 | PN ---
DATE: 09/25/2019 PSYCHIATRIC PROGRESS NOTE This late entry 09/25/2019 covers elements not covered in my initial note. SUBJECTIVE: I met with the patient in the evening. The patient slept 6-3/4 hours previous night. The patient remains confused, but not aggressive, disruptive. REVIEW OF SYSTEMS: No CV, , pulmonary, eye, ENT system symptoms on review. Reliability poor. MENTAL STATUS EXAM: Oriented to herself. Insight, judgment, recent and remote memory, attention, concentration, fund of knowledge poor, consistent with her diagnosis mentioned in my initial note. PLAN: No change from initial note. Zoloft was changed to Cymbalta. We will adjust gradually, maintain Seroquel and Remeron for now. Hopefully, Cymbalta will help with the chronic pain, which increases her agitation as well. MAN Geeta BREAUX MD DR: DARRELL/austen JOB#: [id number] / [id number]
--- NOTE | 2019-09-26 13:14 | NUR ---
MAURILIO returned call to pt son Jagjit to discuss pt discharge. Pt son reports that he is currently moving pt furniture into her room at [facility] and is fine with having pt discharged tomorrow afternoon. Pt son reports that he should be able to come in tomorrow by 1500 to pick pt up. MAURILIO will contact the facility and see about the medication list and other arrangements.
--- NOTE | 2019-09-26 13:23 | NUR ---
[facility] Social Work Discharge Planning Form Patient Name NELDA PABON Admit Date: 09/14/19 DISCHARGE PLAN Discharge Destination: Pt to discharge to [facility] Care Assessment: Completed Level II Assessment: N/A Transportation: Pt son to pick pt up around 1500 Special Instructions/Notes: Please fax over discharge orders and final discharge medication sheet to the fax number listed below. DISCHARGE TO FACILITY Facility: [facility] Fax: [phone] Address: [address] [address] Contact Name: Dina Arroyo DON: Contact Name: Please ask for the nurse caring for pt upon admission: PCP: Will follow up with the facility physician.
--- NOTE | 2019-09-26 15:06 | NUR ---
Patient is in dining room for medications and assessments. She is calm, cooperative and compliant. No agitation. Denies pain or discomfort.
[2019-09-26 16:16] VITALS: BP 149/65
[2019-09-26] MEDS: CHOLECALCIFEROL (VITAMIN D3) 1,000 UNIT TABLET PO SCH (20:13)
[2019-09-26] MEDS: ATORVASTATIN CALCIUM 20 MG TABLET PO SCH (20:14)
[2019-09-26] MEDS: DOCUSATE SODIUM 100 MG CAPSULE PO SCH (20:14)
[2019-09-26] MEDS: FERROUS SULFATE 325 MG TABLET. PO SCH (20:14)
[2019-09-26] MEDS: MIRTAZAPINE 7.5 MG TABLET. PO SCH (20:14)
[2019-09-26] MEDS: INSULIN GLARGINE SYRINGE. SQ SCH (20:15)
--- NOTE | 2019-09-26 20:15 | NUR ---
Nursing Note: Pt sleeping in bed on assessment. Pt woke up easily, interactive with staff. Pt compliant with medications whole. Pt denies pain.
--- NOTE | 2019-09-26 21:26 | PDOC ---
Exam Note: Donta Note: Please also refer to the separate dictated note~for this date of service dictated separately.~Patient seen individually. Discussed the patient with Nursing staff reviewed the chart.~Reviewed interim history and current functioning. Reviewed vital signs,~Labs/ Radiology~and current medications noted below. Continue current treatment with the changes noted in the dictated addendum note Assessment: Vital Signs/I&O: Vital Signs Date Time Temp Pulse Resp B/P (MAP) Pulse Ox O2 Delivery O2 Flow Rate FiO2 09/26/19 16:16 97.5 60 18 149/65 (93) 99 09/25/19 13:44 Room Air I & O 09/25/19 09/25/19 09/26/19 15:00 23:00 07:00 Intake Total 960 ml 360 ml Balance 960 ml 360 ml Labs: Laboratory Tests Test 09/26/19 07:19 09/26/19 11:48 09/26/19 17:18 09/26/19 19:12 Glucose (Fingerstick) 206 mg/dL (70-99) H 145 mg/dL (70-99) H 140 mg/dL (70-99) H 123 mg/dL (70-99) H Current Medications: I have reviewed the current psychotropics carefully including drug interactions. Risk benefit ratio favors no change other than as noted in my dictated progress note. Diagnosis: Problems: (1) Major depression (2) Dementia, vascular, with depression (3) Dementia, vascular, with delusions (4) Dementia in Alzheimer's disease with depression (5) Dementia in Alzheimer's disease with delusions (6) Major neurocognitive disorder, due to vascular disease, with behavioral disturbance, mild RHIANNA BREAUX MD Sep 26, 2019 21:26
[2019-09-26] MEDS ORDERED: ATOR40TA59 PO (23:23)
[2019-09-26] MEDS ORDERED: CALC-56 PO (23:26)
[2019-09-26] MEDS ORDERED: CETI10TA16 PO (23:27)
[2019-09-26] MEDS ORDERED: DULO30CA2 PO (23:33)
[2019-09-26] MEDS ORDERED: DULO60CA6 PO (23:34)
[2019-09-26] MEDS ORDERED: FERR325T14 PO (23:35)
[2019-09-26] MEDS ORDERED: INSU100C SQ (23:37)
[2019-09-26] MEDS ORDERED: MAG30ORA2 PO (23:38)
[2019-09-26] MEDS ORDERED: MAGN2400 PO (23:39)
[2019-09-26] MEDS ORDERED: MAGN400T5 PO (23:39)
[2019-09-26] MEDS ORDERED: METH28OI2 TP (23:40)
[2019-09-27 05:26] VITALS: BP 132/59
[2019-09-27] MEDS: INSULIN LISPRO 300 UNITS/3 ML VIAL. SQ SCH (08:24)
[2019-09-27] MEDS: ASPIRIN 325 MG TABLET PO SCH (08:59)
[2019-09-27 09:00] VITALS: BP 132/59
[2019-09-27] MEDS: ISOSORBIDE MONONITRATE ER 30 MG TAB.ER.24H PO SCH (09:00)
[2019-09-27] MEDS: MAGNESIUM OXIDE 400 MG TABLET PO SCH (09:00)
[2019-09-27] MEDS: CALCIUM CARB/VIT D3 500/200 TABLET PO SCH (09:00)
[2019-09-27] MEDS: METOPROLOL SUCC 24HR ER 50 MG TAB.ER.24H. PO SCH (09:00)
[2019-09-27] MEDS: LENALIDOMIDE 5 MG PO SCH (09:01)
[2019-09-27] MEDS: DULoxetine HCL 30 MG CAPSULE.DR PO SCH (09:01)
[2019-09-27] MEDS: QUEtiapine 25 MG TABLET. PO SCH (09:01)
--- NOTE | 2019-09-27 10:33 | NUR ---
Patient was pleasant and interactive with peers and staff at breakfast. She was compliant with her medications taken whole. Patient ambulates in hallway with use of a walker. Patient has been appropriate with staff in her interactions with no reports of visual hallucinations. Patient got 7.75 hours of sleep last night.
--- NOTE | 2019-09-27 12:14 | NUR ---
Transition Record was faxed to follow-up provider with the following elements: Reason for admission, procedures, tests, principal diagnosis, pending studies, patient instructions, 27/04 contact information for unit, phone number to obtain pending test results, plan for follow-up care, physician follow-up, advanced directive information, and medication list with dose, duration and instructions. This information was included in the following documents: History and physical, lab results, study results, progress notes, social work planning form, DC instruction form, patient visit summary, and medication reconciliation form. Date & time record faxed: 09/27/19 3070 Record faxed to: [facility] fax#[phone] Record discussed with/ report given to: TREE Arroyo
--- NOTE | 2019-09-27 21:21 | PDOC ---
Exam Note: Donta Note: Please also refer to the separate dictated note~for this date of service dictated separately.~Patient seen individually. Discussed the patient with Nursing staff reviewed the chart.~Reviewed interim history and current functioning. Reviewed vital signs,~Labs/ Radiology~and current medications noted below. Continue current treatment with the changes noted in the dictated addendum note Assessment: Vital Signs/I&O: Vital Signs Date Time Temp Pulse Resp B/P (MAP) Pulse Ox O2 Delivery O2 Flow Rate FiO2 09/27/19 09:00 60 132/59 09/27/19 05:26 97.7 18 95 09/25/19 13:44 Room Air I & O 09/26/19 09/26/19 09/27/19 15:00 23:00 07:00 Intake Total 480 ml 480 ml Balance 480 ml 480 ml Labs: Laboratory Tests Test 09/27/19 07:48 Glucose (Fingerstick) 106 mg/dL (70-99) H Current Medications: I have reviewed the current psychotropics carefully including drug interactions. Risk benefit ratio favors no change other than as noted in my dictated progress note. Diagnosis: Problems: (1) Major depression (2) Dementia, vascular, with depression (3) Dementia, vascular, with delusions (4) Dementia in Alzheimer's disease with depression (5) Dementia in Alzheimer's disease with delusions (6) Major neurocognitive disorder, due to vascular disease, with behavioral disturbance, mild RHIANNA BREAUX MD Sep 27, 2019 21:21
[2019-09-28] MEDS ORDERED: DULoxetine HCL 60 MG CAPSULE.DR PO SCH (09:00)
--- NOTE | 2019-09-28 17:42 | DS ---
DATE OF DISCHARGE: 09/27/2019 DISCHARGE SUMMARY/PSYCHIATRIC PROGRESS NOTE This late entry 09/27/2019 covers elements not covered in my initial note. REASON FOR ADMISSION: Please refer to the admission history for details. Briefly, the patient is an 88-year-old female referred to us from [facility] via the Emergency Room at [facility] on account of increasingly being verbally abusive, increased confusion, attempting to throw her walker. She fell and broke her hip as a consequence of this. She was scratching and biting staff, threatening to kill herself while at rehab at [facility]. She was belligerent. In the hospital, she was having visual hallucinations, confusion, sleep disturbances. She was transferred to the inpatient hospital from the ER and all of the above symptoms persisted despite her medical stabilization, resulting in this referral for psychiatric stabilization. SIGNIFICANT FINDINGS AND CLINICAL COURSE: Following admission, the patient was seen daily individually by myself from a psychiatric standpoint, medical followup with Dr. Burton. She is extremely agitated, anxious, confused, restless, paranoid, at admission. Adjustments were made in her psychotropic. She seemed to respond to a combination of Seroquel 12.5 mg b.i.d., Remeron 7.5 mg at bedtime, Cymbalta 30 mg a day to be increased to 60 mg a day on 09/28/2019. Zoloft had been discontinued and Cymbalta added, which it was felt would help her chronic pain as well. REVIEW OF SYSTEMS: Prior to discharge on 09/27/2019, ambulation impaired, in wheelchair. No CV, , pulmonary, eye, ENT system symptoms on review. Reliability poor. MENTAL STATUS EXAM: Oriented to herself. Insight, judgment, recent and remote memory, attention, concentration, fund of knowledge poor, consistent with her diagnosis. She is legally blind and is hard of hearing with hearing aids, all of which worsens her confusion, agitation, but she was quite a bit better prior to discharge. FINAL DIAGNOSES: Major neurocognitive disorder, Alzheimer, vascular with delusion, depression, behavioral disturbance; anxiety disorder, unspecified; impulse control disorder, unspecified. Rest unchanged from admission. DISCHARGE MEDICATIONS: Please refer to the [facility]AD. DISCHARGE INSTRUCTIONS: Outpatient psychiatric and medical followup at the care home. Time for discharge day management greater than 30 minutes. MAN Geeta BREAUX MD DR: Demetrio JOB#: [id number] / [id number]
--- NOTE | 2019-09-28 18:28 | PN ---
DATE: 09/26/2019 PSYCHIATRIC PROGRESS NOTE This late entry 09/26/2019 covers elements not covered in my initial note. SUBJECTIVE: I met with the patient in the evening. Per TREE Bro, the patient slept 6 hours previous night. The patient remains confused, but not aggressive and has been accepted at [facility]. REVIEW OF SYSTEMS: Ambulation impaired, in wheelchair. No CV, , pulmonary, eye, ENT system symptoms on review. Reliability poor. MENTAL STATUS EXAM: Oriented to herself. Insight, judgment, recent and remote memory, attention, concentration, fund of knowledge poor, consistent with her diagnosis mentioned in my initial note. PLAN: No change from initial note. RHIANNA BREAUX MD DR: DARRELL/austen JOB#: [id number] / [id number]
[2019-09-29] MEDS ORDERED: ALENDRONATE SODIUM 35 MG TABLET PO SCH (07:00)
== END 2019-09-27 12:00 | DRG 56 ==
LOC: GEROPSY 15:35
PROVIDERS: ADMIT Psychiatry & Neurology Psychiatry; ATTEND Psychiatry & Neurology Psychiatry
DX: G30.9 Alzheimer's disease, unspecified (principal); E43 Unspecified severe protein-calorie malnutrition; F01.51 Vascular dementia, unspecified severity, with behavioral disturbance; D61.818 Other pancytopenia; F02.81 Dementia in other diseases classified elsewhere, unspecified severity, with behavioral disturbance; R45.851 Suicidal ideations; D46.9 Myelodysplastic syndrome, unspecified; D51.0 Vitamin B12 deficiency anemia due to intrinsic factor deficiency; E11.22 Type 2 diabetes mellitus with diabetic chronic kidney disease; E11.319 Type 2 diabetes mellitus with unspecified diabetic retinopathy without macular edema; E11.51 Type 2 diabetes mellitus with diabetic peripheral angiopathy without gangrene; E11.65 Type 2 diabetes mellitus with hyperglycemia; E78.5 Hyperlipidemia, unspecified; E83.42 Hypomagnesemia; F32.9 Major depressive disorder, single episode, unspecified; F41.9 Anxiety disorder, unspecified; F63.9 Impulse disorder, unspecified; H54.8 Legal blindness, as defined in USA; I12.9 Hypertensive chronic kidney disease with stage 1 through stage 4 chronic kidney disease, or unspecified chronic kidney disease; I25.10 Atherosclerotic heart disease of native coronary artery without angina pectoris; M81.0 Age-related osteoporosis without current pathological fracture; N18.9 Chronic kidney disease, unspecified; G89.29 Other chronic pain; Z79.899 Other long term (current) drug therapy; Z97.4 Presence of external hearing-aid; W06.XXXA Fall from bed, initial encounter; Y93.89 Activity, other specified; Y92.238 Other place in hospital as the place of occurrence of the external cause; Y99.8 Other external cause status; Z68.24 Body mass index [BMI] 24.0-24.9, adult
CPT/HCPCS: 36415; 71045; 73502; 73600; 80048; 80053; 80061; 82306; 82607; 82947; 83036; 83540; 83550; 83735; 84436; 84443; 84480; 85025; 85379; 85651; 86140; 86592; 93005; 93970; J1815; 97110; 97116; 97530; 97535